=== PATIENT | female | born 1955 | race Caucasian/White ===

== ENCOUNTER → 2017-11-25 10:26 | Outpatient (CLI) | payer MEDICAID, SELFPAY ==
[2017-11-30 15:54] LABS: HPV APTIMA, High Risk Negative (Negative)
== END ==
PROVIDERS: Visit Provider Obstetrics & Gynecology
DX: Z01.419 Encounter for gynecological examination (general) (routine) without abnormal findings (principal)
CPT/HCPCS: 88175; G0145

== ENCOUNTER 2019-12-23 14:21 | Observation (INO) | payer MEDICARE, SELFPAY ==
[2019-12-23] VITALS (7 sets, daily range): BP systolic 117–147; BP diastolic 73–85; PULSE 87–109; RESP 15–20; TEMP 35.8–36.8; O2SAT 94–98; BMI 34.7; BMI 33.8
--- NOTE | 2019-12-23 14:52 | EKG12_ITS ---
Test Reason : SYNCOPE Blood Pressure : / mmHG Vent. Rate : 099 BPM Atrial Rate : 099 BPM P-R Int : 152 ms QRS Dur : 128 ms QT Int : 402 ms P-R-T Axes : 062 083 011 degrees QTc Int : 515 ms Normal sinus rhythm Right bundle branch block Abnormal ECG Confirmed by CHANTAL HURTADO, TANESHA ([id number]), research editor DANIEL RUIZ ([id number]) on 12/25/2019 2:40:00 PM Referred By: DC Confirmed By:TANESHA CORNEJO MD
--- NOTE | 2019-12-23 14:52 | CT_ITS ---
STUDY: CT ABDOMEN AND PELVIS WITH CONTRAST REASON FOR EXAM: Female, 64 years old. Abdominal pain diarrhea RADIATION DOSAGE (If Supplied By Facility): CTDIvol = ( 17.65 ) mGy, DLP = ( 1141.75 ) mGycm TECHNIQUE: CT images were obtained from the dome of the diaphragm to the symphysis pubis without oral contrast. IV 100mL Isovue-370 was administered. Sagittal and coronal images were reconstructed. Individualized dose optimization techniques were used for this CT. COMPARISON: None. FINDINGS: The visualized lung bases are unremarkable. The visualized portions of the heart are within normal limits. Normal liver. Gallbladder is removed. Normal spleen. Normal pancreas. 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 Normal bilateral adrenal glands. Normal right kidney. Normal left kidney. There is no intestinal obstruction. There is colonic diverticulosis without diverticulitis. The appendix is visualized and appears normal. Normal abdominal aorta. Normal inferior vena cava. Normal retroperitoneum. BMI severely elevated Normal urinary bladder. Normal abdominal wall. Normal osseous structures. CT/Abdomen/Pelvis W IV Cont ONLY IMPRESSION: 1. No acute findings 2. 1.5 cm splenic artery aneurysm. Vascular referral is advised. Electronically Signed: Teresa Delgado, at 16:15 EDT Tel , Service support ,
--- NOTE | 2019-12-23 14:53 | CT_ITS ---
STUDY: CT BRAIN WITHOUT CONTRAST REASON FOR EXAM: Female, 64 years old. Syncope. RADIATION DOSAGE (If Supplied By Facility): CTDIvol = ( 5 ) mGy, DLP = ( 812.98 ) mGycm TECHNIQUE: Transaxial CT imaging of the brain was performed without administration of intravenous contrast material. Individualized dose optimization techniques were used for this CT. COMPARISON: No relevant priors. FINDINGS: Normal soft tissue structures. Normal calvarium. Normal size ventricles and extra-axial spaces for the patient''s age. Normal white matter tracts of the cerebral hemispheres. There is a small lacunar infarct in the right basal ganglia. Normal left basal ganglia and bilateral thalami. Normal brainstem. Normal cerebellum. There is no intracranial hemorrhage. There are no findings of an acute ischemic infarction. Normal visualized paranasal sinuses. CT/Brain/Head without Contrast IMPRESSION: Remote lacunar infarct in the right basal ganglia. There is no other evidence of intracranial or calvarial abnormality. Electronically Signed: Carlos Elena DO at 16:44 EDT Tel [phone], Service support ,
[2019-12-23 15:00] LABS: Absolute Lymphocyte Count 1.85 X10^3/uL (0.83-4.51); Absolute Neutrophil Count 6.6 X10^3/uL (2.0-7.7); Basophil# 0.04 X10^3/uL; Basophil% 0.4 % (0-1); Eosinophil# 0.09 X10^3/uL; Hematocrit 48.4 % (37-47); Hemoglobin 15.7 g/dL (12.0-15.0); Lymphocyte # 1.85 X10^3/ul (4.0); Lymphocyte % 19.7 % (19-41); Mean Corp Hgb Conc 32.4 g/dL (32-36); Mean Corpuscular Hgb 27.4 pg (27.0-32.0); Mean Corpuscular Volume 84.3 fL (81-99); Mean Platelet Vol. 11.8 fl (6.2-12.0); Monocyte% 8.5 % (0-10); NRBC Flagged by Analyzer 0 % (0-5); Neutrophil # 6.61 X10^3/uL (2.7-7.7); Neutrophil % 70.2 % (47-70); Platelet Count 282 K/mm3 (150-450); RBC Distribution Width CV 14.6 % (11.6-14.6); RBC Distribution Width SD 44.5 fl (35.1-43.9); Red Blood Count 5.74 M/mm3 (4.2-5.4); White Blood Count 9.4 K/mm3 (4.4-11.0)
[2019-12-23 15:15] LABS: ALB/GLOB Ratio 1.1 RATIO (0.9-2.4); AST(SGOT) 16 U/L (15-37); Alanine Aminotransfer ALT/SGPT 25 U/L (13-56); Alkaline Phosphatase 87 U/L (45-117); Anion Gap 9 (5-15); BUN 16 mg/dL (7-18); BUN/Creat Ratio 17.9 RATIO (10-20); Calcium,Total 8.5 mg/dL (8.5-10.1); Chloride 107 mmol/L (98-107); Creatinine, Serum 0.89 mg/dL (0.55-1.02); EST Glomerular Filtration Rate 67 mL/min (>60); Est Glom Filt Rate - Afr Amer 81 mL/min (>60); Estimated Creatinine Clearance 51.44 ml/min; Globulin 3.5 g/dL (2.2-4.2); Glucose 110 mg/dL (74-106); Lipase 110 U/L (73-393); Potassium 3.7 mmol/L (3.5-5.1); Protein, Total 7.5 g/dL (6.4-8.2); Sodium Level 141 mmol/L (136-145)
[2019-12-23] MEDS: 0.9% Normal Saline 1,000 ML 1000 ML IV (15:24)
--- NOTE | 2019-12-23 16:00 | RAD_ITS ---
STUDY: X-RAY CHEST REASON FOR EXAM: Female, 64 years old. syncope and sob TECHNIQUE: Frontal view of the chest COMPARISON: November 24 2016 FINDINGS: The lungs are clear and expanded. There is no demonstrated pleural abnormality. Normal size heart. Normal mediastinum and kaley. Normal visualized pulmonary arteries. Normal visualized aortic arch and descending thoracic aorta. Normal visualized thoracic spine. Normal visualized ribs, clavicles, and shoulders. There is no demonstrated abnormality of the visualized soft tissue structures of the upper abdomen. RAD/Chest 1 View (Portable) IMPRESSION: Normal x-ray examination of the chest. Electronically Signed: Teresa Delgado, at 16:51 EDT Tel , Service support ,
[2019-12-23 16:19] LABS: Bacteria 0 SEEN /hpf (None Seen); Mucous, Urine 0 SEEN /hpf (<or=2+); Red Blood Cells-Urine 0 SEEN /hpf (0-5)
[2019-12-23 16:26] LABS: Color, Urine Yellow (Yellow); Glucose, Dipstick Normal (Normal); Ketone-Dipstick Negative (Negative); Leukocyte Esterase-Dipstick Negative /ul (Negative); Nitrite-Dipstick Negative (Negative); Occult Blood-Urine Negative /ul (Negative); Protein-Dipstick Negative (Negative); Urine Bilirubin Dipstick Negative (Negative); Urine Clarity Clear (Clear); Urine Urobilinogen Normal (Normal)
[2019-12-23 16:42] LABS: Squamous Epithelial Cells - UA 0-5 SEEN /hpf (5-10)
[2019-12-23 16:44] LABS: White Blood Cells 0-5 SEEN /hpf (0-5)
--- NOTE | 2019-12-23 18:12 | ED.VISSUMM ---
- ER Visit Summary Date of Service: 12/23/19 Chief Complaint: Syncope History of Present Illness: The patient is a 64 F with a history of syncope. This is her third episode of syncope this month. She has had some diarrhea today. It was liquid without blood. After an episode of diarrhea, she passed out while still sitting on the toilet. She did not sustain any injuries. She denies any other associated symptoms. Physical Examination: Afebrile and vital signs unremarkable except for heart rate of 109. Head and neck atraumatic. Heart tachycardic but regular. Lungs clear. Abdomen soft and nontender. Skin appears normal. Test Results: EKG shows sinus rhythm at a rate of 99 with right bundle branch block pattern. Chest x-ray normal. CT brain showed a right basal ganglia remote lacunar infarct. CT abdomen and pelvis showed 1.5 cm splenic artery aneurysm. Hemoglobin 15.7, glucose 110, hepatic panel and lipase normal. Urinalysis normal. Troponin normal. Stool testing was not completed in the ED. Emergency Department Course and Treatment: Patient was placed on a monitor. Work-up as above. Orthostatics were negative, but she did receive IV fluids. No further symptoms or episodes in the ED. Given that this is her third episode in the past 2 weeks, and I do not have an explanation for her syncope, I consulted the hospitalist to admit for further care. Patient was informed about her splenic artery aneurysm and will follow-up with vascular surgery non-emergently. I do not believe this is causing her syncope. Treatment Plan: As above Disposition: Admission Impression: Syncope, splenic artery aneurysm This note was generated with [employer] dictation software. It may contain incorrect words, spelling, and punctuation that were not noted in review of the chart prior to signing ED Disposition - Plan for ED Patient: Referrals: Dewayne Guallpa PA [Primary Care Provider] -
--- NOTE | 2019-12-23 18:15 | HP.PCM_ITS ---
Problem List (1) Syncope and collapse Status: Acute (2) Diarrhea Status: Acute History of Present Illness Date of Admission: 12/23/19 Chief Complaint: Passed out The patient is a 64 year old F in relatively good health with no chronic medical comorbidities who presented to the emergency department after passing out. Patient reports 3-day history of diarrhea. Patient states she was sitting on the toilet when she passed out. Prior to that she had experienced 2 previous syncopal episode not related to bowel movement. Patient presented to the emergency department as a result. Was placed in isolation after enteric p athogens have been collected and admitted to regular nursing floor for subsequent management. Past Medical History Allergies Sulfa (Sulfonamide Antibiotics) Allergy (Verified 12/23/19 14:21) Hives Home Medications: Ambulatory Orders Medication Instructions Recorded No Known/Unobtainable [No Known 11/24/16 Home Medications] Smoking Status: Never smoker - *Family History Maternal History Items: - - Mother is alive at age 99 Paternal History Items: Heart Disease - Review of Systems Constitutional: Denies: Anorexia, Chills, Fever, Night Sweats, Weight Change HEENT: Denies: Head Aches, Sinus Congestion, Sinus Drainage Cardiovascular: Reports: Syncope. Denies: Chest Pain, Orthopnea, Palpitations, Paroxysmal Noc. Dyspnea Respiratory: Denies: Cough, Shortness of breath at rest, Shortness of breath upon exertion, Sputum production Gastrointestinal: Reports: Diarrhea. Denies: Abdominal Pain, Hematemesis, Hematochezia, Nausea, Melena, Vomiting Genitourinary: Denies: Dysuria, Frequency, Hematuria, Urgency Musculoskeletal: Denies: Joint Pain, Joint Tenderness Skin: Denies: Rash Neurological: Denies: Focal weakness, Numbness, Tingling Psychiatric: Denies: Homicidal Ideations, Suicidal Ideations Hematologic/ Lymphatic: Denies: Easy Bruising, Easy Bleeding VTE Information - Inpt Only VTE Present on Admission: No VTE Mechan Device Prophylaxis: None VTE Pharm Prophylaxis ordered?: Yes Patient Problems: Active and Suspected Problems Syncope and collapse (Acute) Diarrhea (Acute) Objective: GENERAL: cooperative HEENT: Atraumatic; EYES; Anicteric, Normal Conjunctiva NECK; supple, normal thyroid, RESPIRATORY: Diminished to auscultation CARDIOVASCULAR: Regular S1 S2, GI: soft, normoactive bowel sounds, : No Renal angle tenderness; EXTREMITIES: No edema, no clubbing, MUSCULOSKELETAL: no muscle waisting NEURO: Awake; no lateralizing signs. SKIN: No Rash PSYCH; Flat affect - Physical Exam Vitals/I&O's: Vital Signs Temp Pulse Resp BP Pulse Ox 98.0 F 95 17 117/76 98 12/23/19 14:23 12/23/19 17:38 12/23/19 17:38 12/23/19 17:38 12/23/19 17:38 Oxygen Delivery Method Room Air Weight: 88.9 kg Body Mass Index (BMI) 34.7 Laboratory Results 12/23/19 14:43: WBC 9.4, RBC 5.74 H, Hgb 15.7 H, Hct 48.4 H, MCV 84.3, MCH 27.4, MCHC 32.4, RDW Std Deviation 44.5 H, RDW Coeff of [place] 14.6, Plt Count 282, MPV 11.8, Immature Gran % (Auto) 0.200, Neut % (Auto) 70.2 H, Lymph % (Auto) 19.7, [place] % (Auto) 8.5, Eos % (Auto) 1.0, Baso % (Auto) 0.4, Absolute Neuts (auto) 6.6, Absolute Lymphs (auto) 1.85, Nucleated RBC % 0 12/23/19 14:43: Sodium 141, Potassium 3.7, Chloride 107, Carbon Dioxide 25.0, Anion Gap 9, BUN 16, Creatinine 0.89, Estim Creat Clear Calc 51.44, Est GFR (MDRD) Af Amer 81, Est GFR (MDRD) Non-Af 67, BUN/Creatinine Ratio 17.9, Glucose 110 H, Calcium 8.5, Total Bilirubin 0.60, AST 16, ALT 25, Alkaline Phosphatase 87, Troponin I < 0.015, Total Protein 7.5, Albumin 4.0, Globulin 3.5, [place] min/Globulin Ratio 1.1, Lipase 110 12/23/19 16:15: Urine Color Yellow, Urine Clarity Clear, Urine pH 6.0, Ur Specific [place] 1.010, Urine Protein Negative, Urine Glucose (UA) Normal, Urine Ketones Negative, Urine Occult Blood Negative, Urine Nitrite Negative, Urine Bilirubin Negative, Urine Urobilinogen Normal, Ur Leukocyte Esterase Negative, Urine RBC 0 SEEN, Urine WBC 0-5 SEEN, Ur Squamous Epith Cells 0-5 SEEN, Urine Bacteria 0 SEEN, Urine Mucus 0 SEEN Assessment/Plan All Active Problems Syncope and collapse (Acute) Diarrhea (Acute) Patient is a 64-year-old lady presented with a syncopal episode 1. Syncopal episode ?Patient presentation consistent with vasovagal; Patient had experienced diarrhea for almost 3 days orthostatic hypotension could also be the etiology of her syncope. Admitted to monitored bed ordered orthostatics every shift, resuscitated with IV fluid. As part of her management ordered serial cardiac enzymes and 2D echo. With this being patient had syncopal episode plan is to pursue a nuclear stress test prior to discharge once her diarrhea resolves 2. Acute gastroenteritis ?Patient placed under enteric precautions whilst stool pathogens collected 3. Elevated blood pressure -patient not a known hypertensive blood pressure was however elevated on admission please on hydralazine as needed 4. Obesity with BMI of 34.7 ?Weight loss advised 5. DVT prophylaxis ?Lovenox Advance planning; did discuss with the patient regarding advanced directives as well as CODE STATUS. Did explain the various scenarios involved ( FULL CODE, DNR CCA, DNR CCA with no intubation, and DNR CC and what each meant) patient elected to full code. Order was placed. Time spent on discussion 18 minutes. OBSV E&M: 83871 Initial observation care L3 Procedures: 39695 Advncd Care Plan 30 Min
--- NOTE | 2019-12-23 18:15 | NURSING ---
PCU SYNCOPE KITTOE
[2019-12-24 01:01] VITALS: BP 145/75; PULSE 96; RESP 12; TEMP 37; O2SAT 93
[2019-12-24 03:01] VITALS: PULSE 89
[2019-12-24 04:47] LABS: Absolute Lymphocyte Count 0.96 X10^3/uL (0.83-4.51); Absolute Neutrophil Count 5.1 X10^3/uL (2.0-7.7); Basophil# 0.03 X10^3/uL; Basophil% 0.4 % (0-1); Eosinophil# 0.14 X10^3/uL; Hematocrit 41.7 % (37-47); Hemoglobin 13.1 g/dL (12.0-15.0); Lymphocyte # 0.96 X10^3/ul (4.0); Lymphocyte % 13.9 % (19-41); Mean Corp Hgb Conc 31.4 g/dL (32-36); Mean Corpuscular Hgb 26.9 pg (27.0-32.0); Mean Corpuscular Volume 85.6 fL (81-99); Mean Platelet Vol. 11.2 fl (6.2-12.0); Monocyte# 0.63 X10^3/uL; Monocyte% 9.1 % (0-10); NRBC Flagged by Analyzer 0 % (0-5); Neutrophil # 5.14 X10^3/uL (2.7-7.7); Neutrophil % 74.5 % (47-70); Platelet Count 225 K/mm3 (150-450); RBC Distribution Width CV 14.6 % (11.6-14.6); Red Blood Count 4.87 M/mm3 (4.2-5.4); White Blood Count 6.9 K/mm3 (4.4-11.0)
[2019-12-24 05:05] LABS: Anion Gap 6 (5-15); BUN 13 mg/dL (7-18); BUN/Creat Ratio 18.6 RATIO (10-20); Calcium,Total 7.5 mg/dL (8.5-10.1); Chloride 113 mmol/L (98-107); EST Glomerular Filtration Rate 89 mL/min (>60); Est Glom Filt Rate - Afr Amer 108 mL/min (>60); Estimated Creatinine Clearance 45.78 ml/min; Glucose 100 mg/dL (74-106); Potassium 4.1 mmol/L (3.5-5.1); Sodium Level 144 mmol/L (136-145)
[2019-12-24 06:00] VITALS: BP 128/71; BP 131/89; BP 133/70; PULSE 84; PULSE 88; PULSE 95; RESP 18; TEMP 36.9; O2SAT 94
[2019-12-24 07:01] VITALS: PULSE 93
[2019-12-24] MEDS: Acetaminophen 325 MG Tablet 650 MG PO (08:22)
[2019-12-24] MEDS: Enoxaparin 40 MG/0.4 ML Syringe SC (08:34)
--- NOTE | 2019-12-24 10:04 | DCINST_ITS ---
- Discharge Diagnoses Current Active Problems: Current Active and Chronic Problems Syncope and collapse (Acute) Diarrhea (Acute) You will use the following diet at home:: Other - Light diet, advance as tolerated Discharge Activity: Return to Normal Activity Call your doctor if you observe: Shortness of breath, Dizziness, Fainting spells, Chest pain Additional Instructions: You will need to have echocardiogram and stress test as outpatient which can be ordered by your primary care provider. Allergies/Adverse Reactions: Allergies Sulfa (Sulfonamide Antibiotics) Allergy (Verified 12/23/19 14:21) Hives Medications to take at Discharge Loperamide [Imodium] 2 mg PO Q2H PRN PRN #60 cap 12/24/19 The following prescriptions were given: Loperamide [Imodium] 2 mg PO Q2H PRN PRN #60 cap PRN Reason: Diarrhea Transmission Status: Pending to [facility] Primary Care Physician: Dewayne Guallpa PA [Primary Care Provider] - Please follow up with your Primary Care Physician in: As scheduled, Tuesday 12/26 Test Results: Test results from this visit will be discussed in further detail at your follow- up appointment, if applicable. Please Follow Up With: Chico Calixto MD - [phone] When: Call to establish for colonoscopy Proposed Discharge Date: 12/24/19
--- NOTE | 2019-12-24 10:18 | DS.PCM_ITS ---
<Natalia Matthew - Last Filed: 12/24/19 10:49> Discharge Date and Diagnosis Date of Admission: 12/23/19 Date of Discharge: 12/24/19 - Primary Discharge Diagnosis Acute Problems: Active Problems 1. Syncope, probable vasovagal complicated by dehydration related to ongoing diarrhea 2. Acute on chronic diarrhea 3. Obesity 4. Incidental finding of splenic artery aneurysm Hospital Course and Treatment Imaging Results: Diagnostic Data Abdomen/Pelvis CT 12/23/19 14:52 IMPRESSION: 1. No acute findings 2. 1.5 cm splenic artery aneurysm. Vascular referral is advised. Electronically Signed: Teresa Delgado, at 16:15 EDT Tel , Service support , Brain CT 12/23/19 14:53 IMPRESSION: Remote lacunar infarct in the right basal ganglia. There is no other evidence of intracranial or calvarial abnormality. Electronically Signed: Carlos Elena DO at 16:44 EDT Tel [phone], Service support , Chest X-Ray 12/23/19 16:00 IMPRESSION: Normal x-ray examination of the chest. Electronically Signed: Teresa Delgado, at 16:51 EDT Tel , Service support , Operations: None Procedures: None Summary of Care Provided: The patient is a 64 year old F admitted 12/23/2019 due to syncopal episode. 1. Syncope, probable vasovagal complicated by dehydration related to ongoing diarrhea-troponin negative. EKG without ST-T changes. No arrhythmias noted on telemetry. Orthostatic vitals negative. Brain CT shows old lacunar infarct in the right basal ganglia. Plan to undergo echo and stress test Wednesday morning however patient strongly voiced wanting to go home and complete these as an outpatient. Discussed with patient warning signs/symptoms and when to return to the emergency room for further evaluation. Patient in agreement to close follow-up with PCP at discharge and arranging outpatient echo/stress by primary care provider. Will discharge on aspirin [address] demonstrating old lacunar infarct. 2. Acute on chronic diarrhea-patient states this is been ongoing for several years. She has never had colonoscopy. Stool negative for C. difficile. Enteric bacteriology negative. PRN Imodium. Refer to general surgery for outpatient colonoscopy. 3. Obesity-encouraged diet and lifestyle modifications. 4. Incidental finding of splenic artery aneurysm-1.5 cm splenic artery aneurysm noted on CT of abdomen and pelvis. Referred to vascular surgery for outpatient monitoring. Patient seen and examined prior to discharge. Physical assessment as noted below. Patient is stable for discharge with follow up recommendations as noted above. This patient was seen by TANA Brandon under the supervision of Dr. Reis. - Physical Exam Vitals/I&O's: Vital Signs Temp Pulse Resp BP Pulse Ox 98.4 F 93 18 133/70 H 94 12/24/19 06:00 12/24/19 07:01 12/24/19 06:00 12/24/19 06:00 12/24/19 06:00 Oxygen Delivery Method Room Air Weight: 191 lb Body Mass Index (BMI) 33.8 Orthostatic Vital Signs Start: 12/24/19 05:36 Freq: q24h Status: Active Protocol: Activity Type Activity Date Activity User E-Sign Co-Sign Detail Recorded Client Recorded Date Recorded By Document 12/24/19 06:00 CM [id number] 12/24/19 06:17 CM 12/24/19 06:00 Orthostatic Vitals Standing -Blood Pressure (90/60-120/80) 128/71 H -Extremity Use Right Arm -Pulse Rate (60-100) 95 Sitting -Blood Pressure (90/60-120/80) 131/89 H -Extremity Use Right Arm -Pulse Rate (60-100) 88 Lying -Blood Pressure (90/60-120/80) 133/70 H -Extremity Use Left Arm -Pulse Rate (60-100) 84 Intake and Output for Last 24 Hours 12/22/19 12/23/19 12/24/19 23:59 23:59 23:59 Intake Total 999 / 999 Balance 999 General: Alert, Oriented x3, Cooperative HEENT: Atraumatic, PERRLA, EOMI, Normocephalic Neck: Supple, No JVD, Negative Carotid Bruits Lungs: Clear to auscultation, Normal air movement Cardiovascular: Regular rate, No murmurs Abdomen: Bowel Sounds Present, Soft, Non Tender Extremities: No edema, Capillary Refill Less than 3 Seconds Skin: No rashes, No breakdown Musculoskeletal: No Tenderness to Palpation of Joints or Extremities Neurological: Cranial nerves II-XII grossly intact, Neuro grossly intact Psych/Mental Status: Normal Affect, Appropriate Microbiology Past 72 Hours 12/23/19 19:15 Stool C. difficile DNA Amplification - Final 12/23/19 20:40 Stool Stool Lactoferrin - Final Laboratory Results 12/23/19 14:43: WBC 9.4, RBC 5.74 H, Hgb 15.7 H, Hct 48.4 H, MCV 84.3, MCH 27.4, MCHC 32.4, RDW Std Deviation 44.5 H, RDW Coeff of [place] 14.6, Plt Count 282, MPV 11.8, Immature Gran % (Auto) 0.200, Neut % (Auto) 70.2 H, Lymph % (Auto) 19.7, [place] % (Auto) 8.5, Eos % (Auto) 1.0, Baso % (Auto) 0.4, Absolute Neuts (auto) 6.6, Absolute Lymphs (auto) 1.85, Nucleated RBC % 0 12/23/19 14:43: Sodium 141, Potassium 3.7, Chloride 107, Carbon Dioxide 25.0, Anion Gap 9, BUN 16, Creatinine 0.89, Estim Creat Clear Calc 51.44, Est GFR (MDRD) Af Amer 81, Est GFR (MDRD) Non-Af 67, BUN/Creatinine Ratio 17.9, Glucose 110 H, Calcium 8.5, Total Bilirubin 0.60, AST 16, ALT 25, Alkaline Phosphatase 87, Troponin I < 0.015, Total Protein 7.5, Albumin 4.0, Globulin 3.5, Albumin/Globulin Ratio 1.1, Lipase 110 12/23/19 16:15: Urine Color Yellow, Urine Clarity Clear, Urine pH 6.0, Ur Specific [place] 1.010, Urine Protein Negative, Urine Glucose (UA) Normal, Urine Ketones Negative, Urine Occult Blood Negative, Urine Nitrite Negative, Urine Bilirubin Negative, Urine Urobilinogen Normal, Ur Leukocyte Esterase Negative, Urine RBC 0 SEEN, Urine WBC 0-5 SEEN, Ur Squamous Epith Cells 0-5 SEEN, Urine Bacteria 0 SEEN, Urine Mucus 0 SEEN 12/23/19 22:42: Troponin I < 0.015 12/24/19 01:32: Troponin I < 0.015 12/24/19 04:42: WBC 6.9, RBC 4.87, Hgb 13.1, Hct 41.7, MCV 85.6, MCH 26.9 L, MCHC 31.4 L, RDW Std Deviation 46.0 H, RDW Coeff of [place] 14.6, Plt Count 225, MPV 11.2, Immature Gran % (Auto) 0.100, Neut % (Auto) 74.5 H, Lymph % (Auto) 13.9 L, [place] % (Auto) 9.1, Eos % (Auto) 2.0, Baso % (Auto) 0.4, Absolute Neuts (auto) 5.1, Absolute Lymphs (auto) 0.96, Nucleated RBC % 0 12/24/19 04:42: Sodium 144, Potassium 4.1, Chloride 113 H, Carbon Dioxide 25.0, Anion Gap 6, BUN 13, Creatinine 0.70, Estim Creat Clear Calc 45.78, Est GFR (MDRD) Af Amer 108, Est GFR (MDRD) Non-Af 89, BUN/Creatinine Ratio 18.6, Glucose 100, Calcium 7.5 L, Troponin I < 0.015 Current Medications Acetaminophen (Tylenol) 650 mg PO Q6H PRN PRN PRN Reason: Pain Score 1-10/Temp > 100.7 F Last Admin: 12/24/19 08:22 Dose: 650 mg Documented by: Albuterol Sulfate (Ventolin Aerosols) 2.5 mg INHALATION Q2H PRN PRN PRN Reason: SOB/Wheezing Enoxaparin Sodium (Lovenox) 40 mg SC DAILY [facility] Last Admin: 12/24/19 08:34 Dose: 40 mg Documented by: Potassium Chloride/Sodium Chloride () 1,000 mls @ 150 mls/hr IV .Q6H40M [facility] Last Admin: 12/24/19 09:25 Dose: 150 mls/hr Documented by: Melatonin (Melatonin) 3 mg PO QHS PRN PRN PRN Reason: INSOMNIA Morphine Sulfate () 4 mg IV Q3H PRN PRN PRN Reason: Pain Score 6-10/10 Nitroglycerin (Nitrostat) 0.4 mg SUBLINGUAL Q5M PRN PRN Reason: CARDIAC/CHEST PAIN Ondansetron HCl (Zofran) 4 mg IV Q8H PRN PRN PRN Reason: NAUSEA/VOMITING Oxycodone HCl (Oxyir) 5 mg PO Q4H PRN PRN PRN Reason: Pain Score 4-5/10 Promethazine HCl (Phenergan) 25 mg IM Q6H PRN PRN PRN Reason: Breakthrough Nausea/Vomiting Sodium Chloride () 10 - 40 ml IV UD PRN PRN Reason: SALINE FLUSH Discharge Diet: Light diet - advance as tolerated Discharge Activity: Return to Normal Activity Call your doctor if you observe: Shortness of breath, Dizziness, Fainting spells, Chest pain Home Medications: Medications to take at Discharge Aspirin E.C. [Ecotrin] 81 mg PO DAILY@0800 #30 tab 12/24/19 Loperamide [Imodium] 2 mg PO Q2H PRN PRN #60 cap 12/24/19 Following Prescriptions Were Given to Patient: Aspirin E.C. [Ecotrin] 81 mg PO DAILY@0800 #30 tab Transmission Status: Received by [facility] Loperamide [Imodium] 2 mg PO Q2H PRN PRN #60 cap PRN Reason: Diarrhea Transmission Status: Received by [facility] Primary Care Physician: Dewayne Guallpa PA [Primary Care Provider] - Please follow up with your Primary Care Physician in: As scheduled, Tuesday 12/26 Please Follow Up With: Chico Calixto MD - [phone] When: Call to establish for colonoscopy Please Follow Up With: Tyrell Dee MD When: Call for follow up for splenic artery aneurysm Disposition: Home Minutes spent on discharge:: 35 Patient Condition:: Stable Medical Necessity - Tobacco Use Smoking Status: Never smoker Meaningful Use Info Meaningful Use Diagnoses (Choose all that apply): None applicable <Jacob Reis - Last Filed: 12/24/19 13:02> Hospital Course and Treatment Summary of Care Provided: This patient was seen in conjunction with TANA Brandon . I have independently interviewed and examined the patient and reviewed pertinent historical, laboratory, and other data. Please refer to TANA Brandon note for details of this patient's presentation, findings, and recommendations. I have reviewed TANA Brandon note and concur with documented findings. In brief, Patient is a 64-year-old lady presented with a syncopal episode 1. Syncopal episode 2. Acute gastroenteritis 3. Elevated blood pressure 4. Obesity with BMI of 34.7 5. DVT prophylaxis Hospital course: As documented above - Physical Exam Vitals/I&O's: Vital Signs Temp Pulse Resp BP Pulse Ox 97.8 F 84 15 122/68 H 95 12/24/19 11:10 12/24/19 11:10 12/24/19 11:10 12/24/19 11:10 12/24/19 11:10 Oxygen Delivery Method Room Air Weight: 86.636 kg Body Mass Index (BMI) 33.8 Orthostatic Vital Signs Start: 12/24/19 05:36 Freq: q24h Status: Active Protocol: Activity Type Activity Date Activity User E-Sign Co-Sign Detail Recorded Client Recorded Date Recorded By Document 12/24/19 06:00 CM [id number] 12/24/19 06:17 CM 12/24/19 06:00 Orthostatic Vitals Standing -Blood Pressure (90/60-120/80) 128/71 H -Extremity Use Right Arm -Pulse Rate (60-100) 95 Sitting -Blood Pressure (90/60-120/80) 131/89 H -Extremity Use Right Arm -Pulse Rate (60-100) 88 Lying -Blood Pressure (90/60-120/80) 133/70 H -Extremity Use Left Arm -Pulse Rate (60-100) 84 Intake and Output for Last 24 Hours 12/22/19 12/23/19 12/24/19 23:59 23:59 23:59 Intake Total 1000 / 1000 2892.5 / 2892.5 Balance 1000 / 1000 2892.5 / 2892.5 Microbiology Past 72 Hours 12/23/19 20:40 Stool Enteric Bacteriology - Final 12/23/19 19:15 Stool C. difficile DNA Amplification - Final 12/23/19 20:40 Stool Stool Lactoferrin - Final Laboratory Results 12/23/19 14:43: WBC 9.4, RBC 5.74 H, Hgb 15.7 H, Hct 48.4 H, MCV 84.3, MCH 27.4, MCHC 32.4, RDW Std Deviation 44.5 H, RDW Coeff of [place] 14.6, Plt Count 282, MPV 11.8, Immature Gran % (Auto) 0.200, Neut % (Auto) 70.2 H, Lymph % (Auto) 19.7, [place] % (Auto) 8.5, Eos % (Auto) 1.0, Baso % (Auto) 0.4, Absolute Neuts (auto) 6.6, Absolute Lymphs (auto) 1.85, Nucleated RBC % 0 12/23/19 14:43: Sodium 141, Potassium 3.7, Chloride 107, Carbon Dioxide 25.0, Anion Gap 9, BUN 16, Creatinine 0.89, Estim Creat Clear Calc 51.44, Est GFR (MDRD) Af Amer 81, Est GFR (MDRD) Non-Af 67, BUN/Creatinine Ratio 17.9, Glucose 110 H, Calcium 8.5, Total Bilirubin 0.60, AST 16, ALT 25, Alkaline Phosphatase 87, Troponin I < 0.015, Total Protein 7.5, Albumin 4.0, Globulin 3.5, Albumin/Globulin Ratio 1.1, Lipase 110 12/23/19 16:15: Urine Color Yellow, Urine Clarity Clear, Urine pH 6.0, Ur Specific [place] 1.010, Urine Protein Negative, Urine Glucose (UA) Normal, Urine Ketones Negative, Urine Occult Blood Negative, Urine Nitrite Negative, Urine Bilirubin Negative, Urine Urobilinogen Normal, Ur Leukocyte Esterase Negative, Urine RBC 0 SEEN, Urine WBC 0-5 SEEN, Ur Squamous Epith Cells 0-5 SEEN, Urine Bacteria 0 SEEN, Urine Mucus 0 SEEN 12/23/19 22:42: Troponin I < 0.015 12/24/19 01:32: Troponin I < 0.015 12/24/19 04:42: WBC 6.9, RBC 4.87, Hgb 13.1, Hct 41.7, MCV 85.6, MCH 26.9 L, MCHC 31.4 L, RDW Std Deviation 46.0 H, RDW Coeff of [place] 14.6, Plt Count 225, MPV 11.2, Immature Gran % (Auto) 0.100, Neut % (Auto) 74.5 H, Lymph % (Auto) 13.9 L, [place] % (Auto) 9.1, Eos % (Auto) 2.0, Baso % (Auto) 0.4, Absolute Neuts (auto) 5.1, Absolute Lymphs (auto) 0.96, Nucleated RBC % 0 12/24/19 04:42: Sodium 144, Potassium 4.1, Chloride 113 H, Carbon Dioxide 25.0, Anion Gap 6, BUN 13, Creatinine 0.70, Estim Creat Clear Calc 45.78, Est GFR (MDRD) Af Amer 108, Est GFR (MDRD) Non-Af 89, BUN/Creatinine Ratio 18.6, Glucose 100, Calcium 7.5 L, Troponin I < 0.015 Current Medications Acetaminophen (Tylenol) 650 mg PO Q6H PRN PRN PRN Reason: Pain Score 1-10/Temp > 100.7 F Last Admin: 12/24/19 08:22 Dose: 650 mg Documented by: Albuterol Sulfate (Ventolin Aerosols) 2.5 mg INHALATION Q2H PRN PRN PRN Reason: SOB/Wheezing Enoxaparin Sodium (Lovenox) 40 mg SC DAILY [facility] Last Admin: 12/24/19 08:34 Dose: 40 mg Documented by: Potassium Chloride/Sodium Chloride () 1,000 mls @ 150 mls/hr IV .Q6H40M [facility] Last Infusion: 12/24/19 11:02 Dose: Infused Documented by: Melatonin (Melatonin) 3 mg PO QHS PRN PRN PRN Reason: INSOMNIA Morphine Sulfate () 4 mg IV Q3H PRN PRN PRN Reason: Pain Score 6-10/10 Nitroglycerin (Nitrostat) 0.4 mg SUBLINGUAL Q5M PRN PRN Reason: CARDIAC/CHEST PAIN Ondansetron HCl (Zofran) 4 mg IV Q8H PRN PRN PRN Reason: NAUSEA/VOMITING Oxycodone HCl (Oxyir) 5 mg PO Q4H PRN PRN PRN Reason: Pain Score 4-5/10 Promethazine HCl (Phenergan) 25 mg IM Q6H PRN PRN PRN Reason: Breakthrough Nausea/Vomiting Sodium Chloride () 10 - 40 ml IV UD PRN PRN Reason: SALINE FLUSH OBSV E&M: 77616 Observation care discharge
--- NOTE | 2019-12-24 10:49 | PCM.DC ---
You will use the following diet at home:: Other - Light diet-advance as tolerated. Discharge Activity: Return to Normal Activity Call your doctor if you observe: Shortness of breath, Dizziness, Fainting spells, Chest pain Additional Instructions: You will need to have echocardiogram and stress test as outpatient which can be ordered by your primary care provider. Allergies/Adverse Reactions: Allergies Sulfa (Sulfonamide Antibiotics) Allergy (Verified 12/23/19 14:21) Hives Medications to take at Discharge Aspirin E.C. [Ecotrin] 81 mg PO DAILY@0800 #30 tab 12/24/19 Loperamide [Imodium] 2 mg PO Q2H PRN PRN #60 cap 12/24/19 The following prescriptions were given: Aspirin E.C. [Ecotrin] 81 mg PO DAILY@0800 #30 tab Transmission Status: Sent to [facility] Loperamide [Imodium] 2 mg PO Q2H PRN PRN #60 cap PRN Reason: Diarrhea Transmission Status: Pending to [facility] Primary Care Physician: Dewayne Guallpa PA [Primary Care Provider] - Please follow up with your Primary Care Physician in: As scheduled, Tuesday 12/26 Test Results: Test results from this visit will be discussed in further detail at your follow-up appointment, if applicable. Please Follow Up With: Chico Calixto MD - [phone] When: Call to establish for colonoscopy Please Follow Up With: Tyrell Dee MD When: Call for follow up for splenic artery aneurysm Proposed Discharge Date: 12/24/19
[2019-12-24] MEDS: Loperamide 2 MG Capsule PO (11:01)
[2019-12-24 11:10] VITALS: BP 122/68; PULSE 84; RESP 15; TEMP 36.6; O2SAT 95
== END 2019-12-24 10:12 | disposition home or self-care (01) ==
LOC: ED 18:13 → PCU 18:40
PROVIDERS: Family Medicine; Admitting Provider Internal Medicine; Emergency Provider Emergency Medicine; PCP Physician Assistant; Visit Provider Internal Medicine
DX: R55 Syncope and collapse (principal); E66.9 Obesity, unspecified; I72.8 Aneurysm of other specified arteries; I45.10 Unspecified right bundle-branch block; Z68.34 Body mass index [BMI] 34.0-34.9, adult; R03.0 Elevated blood-pressure reading, without diagnosis of hypertension; R19.7 Diarrhea, unspecified
CPT/HCPCS: 36415; 70450; 71045; 74177; 80048; 80053; 81001; 83630; 83690; 84484; 85025; 87177; 87209; 87493; 87506; 93005; 96360; 96361; 96372; 99218; 99285; Q9967; G0378

== ENCOUNTER → 2020-07-27 08:50 | Outpatient (CLI) | payer MEDICARE, SELFPAY ==
[2020-07-10 08:39] VITALS: BMI 36.9
[2020-07-17 08:30] VITALS: BMI 36.7
--- NOTE | 2020-07-27 08:52 | CT_ITS ---
CLINICAL HISTORY: pain -- TEMPLATING FOR RIGHT TKA COMPARISON: None TECHNIQUE: Multiple thin section axial CT images of the right lower extremity were obtained through the hip joint, knee joint, and ankle and filmed in bone windows. Furthermore, multiple sagittal and coronal reconstructions were performed. Dose limiting techniques were utilized. Next FINDINGS: No abnormal soft tissue mass, lymphadenopathy, fluid collection. No acute fracture or dislocation. No lytic or blastic lesions. Examination the hip joint is normal without significant arthrosis. Severe of the right knee arthrosis particularly of the medial compartment with severe joint space narrowing osteophyte formation, subchondral sclerosis and subchondral cyst formation with a 12 mm calcified body anteriorly. Examination the ankle is normal without significant arthrosis. CT/Extremity Lower without Contra IMPRESSION: Severe right knee arthrosis. Electronically Signed: Darrin Sanchez MD at 11:01 EDT Tel , Service support ,
== END ==
PROVIDERS: PCP Physician Assistant; Referring Provider Orthopaedic Surgery; Visit Provider Orthopaedic Surgery
DX: M17.11 Unilateral primary osteoarthritis, right knee (principal)
CPT/HCPCS: 73700

== ENCOUNTER 2020-07-30 10:02 | Observation (INO) | payer MEDICARE, SELFPAY ==
[2020-07-10 08:39] VITALS: BMI 36.9
[2020-07-17 08:30] VITALS: BMI 36.7
[2020-07-22 10:44] LABS: Absolute Neutrophil Count 4.2 X10^3/uL (2.0-7.7); Basophil# 0.05 X10^3/uL; Basophil% 0.8 % (0-1); Eosinophil# 0.14 X10^3/uL; Eosinophils% 2.2 % (0-5); Hematocrit 49.1 % (37-47); Hemoglobin 15.4 g/dL (12.0-15.0); Lymphocyte % 23.7 % (19-41); Mean Corp Hgb Conc 31.4 g/dL (32-36); Mean Corpuscular Hgb 27.7 pg (27.0-32.0); Mean Corpuscular Volume 88.5 fL (81-99); Mean Platelet Vol. 12.4 fl (6.2-12.0); Monocyte# 0.39 X10^3/uL; Monocyte% 6.2 % (0-10); NRBC Flagged by Analyzer 0 % (0-5); Neutrophil # 4.23 X10^3/uL (2.7-7.7); Neutrophil % 66.8 % (47-70); Platelet Count 267 K/mm3 (150-450); RBC Distribution Width SD 45.1 fl (35.1-43.9); Red Blood Count 5.55 M/mm3 (4.2-5.4); White Blood Count 6.3 K/mm3 (4.4-11.0)
[2020-07-22 10:54] LABS: Prothrombin Time (Protime)PT. 12.9 SECONDS (11.7-14.9)
[2020-07-22 10:55] LABS: Partial Thromboplast Time 28.2 Seconds (24.1-36.2)
[2020-07-22 10:57] LABS: Magnesium 2.1 mg/dL (1.6-2.6)
[2020-07-22 11:00] LABS: Anion Gap 5 (5-15); BUN 16 mg/dL (7-18); BUN/Creat Ratio 18.4 RATIO (10-20); Calcium,Total 8.4 mg/dL (8.5-10.1); Chloride 109 mmol/L (98-107); Creatinine, Serum 0.87 mg/dL (0.55-1.02); EST Glomerular Filtration Rate 69 mL/min (>60); Est Glom Filt Rate - Afr Amer 84 mL/min (>60); Glucose 114 mg/dL (74-106); Potassium 4.1 mmol/L (3.5-5.1); Sodium Level 141 mmol/L (136-145)
[2020-07-23 08:48] LABS: Fructosamine 200 umol/L (0-285)
[2020-07-30] VITALS (14 sets, daily range): BP systolic 101–144; BP diastolic 43–77; PULSE 82–100; RESP 16–18; TEMP 36.3–37.1; O2SAT 92–100; BMI 36.6
[2020-07-30] MEDS: Gabapentin 600 MG Tablet PO (06:15)
[2020-07-30] MEDS: Acetaminophen 500 MG Tablet 1000 MG PO ×3 (06:15→21:57)
[2020-07-30] MEDS: Lactated Ringers 1,000 ML 100 ML IV ×2 (06:15→08:45)
[2020-07-30] MEDS: Scopolamine 1mg/72hr Patch 1 PATCH TD (06:16)
--- NOTE | 2020-07-30 07:02 | HP.PCM_ITS ---
History and Physical Date of Admission: 07/30/20 Intake Vital Signs 07/10/20 Height 5 ft 2 in 07/10/20 Weight: 202 lb 07/10/20 BMI 36.9 Intake Visit Reasons: Bilat Knees Chief Complaint: BL knees Accompanied by: self Is patient in pain?: Yes Pain scale (1-10): 7 Allergies Sulfa (Sulfonamide Antibiotics) Allergy (Verified 12/23/19 14:21) Hives Medications Aspirin E.C. [Ecotrin] 81 mg PO DAILY@0800 #30 tab 12/24/19 [Rx Confirmed 07/10/20] Loperamide [Imodium] 2 mg PO Q2H PRN PRN #60 cap 12/24/19 [Rx Confirmed 07/10/20] rosuvastatin 5 mg tablet ea PO 07/10/20 [History Confirmed 07/10/20] PFSH Medical History (Updated 07/10/20 @ 08:38 by Amber Peña) History of pacemaker (Acute ~2019) Hx Gallbladder Removal (Acute ~2007) Surgical History (Updated 07/10/20 @ 08:38 by Amber Peña) Hx of bladder repair surgery (Acute ~1997) Social History (Updated 07/10/20 @ 10:[address] Charanjit Wing DO) Smoking Status: Never smoker HPI Bilat Knees: Details: Parts of this documentation were recorded by a scribe, this documentation accurately reflects the service provided and the decisions made by me, Dr. Charanjit Wing DO 07/10/20 2127. DOMONIQUE FINCH is a 65 year old F NEW patient here today for BL knee pain. She states that the right knee is worse than the left. She has had this pain for about 7 years. Denies any injections or surgery. Denies any previous injury to the knees. She has tried OTC knee bracing which is semi effective. Has tried dry needling with PT about 3 years ago for the knees and she does use topical pain creams at home. She states that the right knee is more over the medial knee and the left knee pain is generalized anterior knee pain. Denies any radiating leg pain. Denies numbness, tingling or other associated symptoms. She has taken Aleve in the past but has switched to Tylenol. She has limited ROM of the right knee. She states that the pain is limited her ADLs, she is unable to use steps at this time. She has increased knee pain with stairs or prolonged standing. She states that she has good days and bad days but the pain is worse with activities. She states that the knee pain limits her walking and she feels that she cant travel d/t the pain. ROS Musc Reports joint pain, Reports joint swelling, Reports limited joint movement, Denies numbness, Denies radiating pain into limb, Reports stiffness, Denies tingling Skin/Breast Denies redness, Denies lesions, Denies itching, Denies rash, Denies skin swelling Neuro No numbness, No tingling Ortho Exam General General: Yes no acute distress Neurologic: Yes alert, Yes oriented x3 Psychologic: Yes reasonable and appropriate Right Knee Skin/Wound: No erythema, No ecchymosis, No swelling Homans Sign: No Knee ROM: No ROM-Extension -20 to 0 (lacking 8), No ROM-Flexion 0-140 (80) Examination: Yes Med jt line tenderness, No Lat jt line tenderness, Yes Crepitus Stability: NML: Anterior Drawer, NML: Posterior Drawer, NML: Valgus 30, NML: Varus 30 Patella Grind: Yes KNEE: neurovascularly intact throughout the lower leg pulses intact collateral ligaments intact no joint effusion b/l fixed varus deformity Left Knee Skin/Wound: No ecchymosis, No erythema, No swelling Homans Sign: No Knee ROM: Yes ROM-Extension -20 to 0, No ROM-Flexion 0-140 (100) Examination: Yes Crepitus Stability: NML: Anterior Drawer, NML: Posterior Drawer, NML: Valgus 30, 1+: Varus 30 (fixed varus) Patella Grind: Yes KNEE: no joint effusion collateral intact fixed varus Supplemental Info 07/10/2020 X-ray right knee advanced knee arthrosis with varus deformity [id number] 07/10/2020 x-ray left knee advanced knee arthrosis [id number] medial compartment with varus deformity Assessment & Plan Problems 1. Primary osteoarthritis of knees, bilateral M17.0 Plan Obtained X-rays of patient's BL knees. Personally reviewed x-rays. There is no obvious fracture, dislocation, or lucency noted. Patient educated that she does have OA of her BL knees. 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 It isnt recommended that she has BL TKA at the same time d/t the increased risk. Patient wishes to proceed with right TKA. Patient has had physical therapy in the past With dry needling without much relief as well as with failure of relief with NSAIDsSpecifically Aleve Considering her advanced arthrosis [id number] duration of her symptoms and the effect on her activities of daily living I think is appropriate to go ahead and proceed with total knee arthroplasty, She does have preoperative stiffness and we will send her for preoperative physical therapy and encourage range of motion preoperatively with quad strengthening. She understands risk of postoperative stiffnessAnd importance to have postoperative physical therapy immediately. Reviewed the pre-operative plans with the patient. Risks and benefits of the procedure were fully explained, including but not limited to infection, neurovascular injury, continued pain, stiffness, need for further surgery, re- injury, DVT, PE, general risks of anesthesia, and loss of limb or life. The patient understands all the risks and does wish to proceed with written consent. Risks, benefits and alternatives of surgery reviewed including but not limited to bleeding, infection, nerve, artery and/or tissue damage, fracture, VTE, mechanical feel of the knee, continued pain, stiffness and expected post- operative course. Educated on the IOVERA treatment and she wishes to have this done as long as insurance covers the procedure. She will also need a CT scan prior to surgery for the Walter assist. She will be on a blood thinner for 2 weeks post op and she will use compression stocking for a few weeks after surgery. We will also send her to [facility] at this time for a couple visits prior to surgery. Educated that she will more than likely feel better than prior to surgery about 3 months post op. On average she wont feel comfortable driving for 6 weeks post op. She will need transport from the hospital to do out patient therapy. Follow up for IOVERA tx or 2 weeks post op or sooner if pain, swelling, numbness or associated symptoms, or concerns develop. All questions answered. Patient in agreement of plan. Orders Orders: Knee 4 or More Views Today M25.562 Knee 4 or More Views Today M25.561 Coding Level of Care Code Off vis,new,level 3 Diagnoses Primary osteoarthritis of knees, bilateral M17.0 I have re-examined the patient. There are no clinical changes since date of exam Procedure Criteria Procedure Type: Elective COVID Risk Discussion: The surgeon/proceduralist and patient have discussed in detail the risk of exposure to and/or potential harm posed by the COVID-19 virus with having a surgery/procedure at this time versus the risk of delaying the surgery/procedure. It is not possible to know either the risk of delaying the surgery or procedure or chance of getting an infection with perfect accuracy, but a joint decision was made between the patient and the surgeon/proceduralist to proceed at this time with the scheduled surgery/procedure as indicated on the consent form.
[2020-07-30] MEDS: Cefazolin 2 GM in 0.9% Normal Saline 100 ML IV (07:25)
[2020-07-30 07:40] LABS: Bedside Glucose 107 mg/dL (70-110)
[2020-07-30] MEDS: dexAMETHasone 10 MG/ML Vial IV (07:56)
[2020-07-30] MEDS: Epinephrine (1 mg/ml) 1 MG/ML VIAL (09:38)
[2020-07-30] MEDS: Bupivacaine Mpf 0.5% 30 ML VIAL (09:39)
[2020-07-30] MEDS: Betamethasone/Betamethasone 30 MG/5 ML Vial (09:39)
[2020-07-30] MEDS: 0.9% Normal Saline (Pres. free 10 ML Vial (09:39)
--- NOTE | 2020-07-30 10:04 | RAD_ITS ---
STUDY: X-RAY - RIGHT KNEE REASON FOR EXAM: Female, 65 years old. post op -- AP and Lateral xray of operative knee in PACU TECHNIQUE: 2 view(s) of the knee. COMPARISON: 07/10/2020. FINDINGS: Status post total knee arthroplasty. Surgical hardware intact/well aligned. No acute complications. Postoperative soft tissues with staple line. RAD/Knee 1 or 2 Views IMPRESSION: Uncomplicated right knee arthroplasty Electronically Signed: Cameron Cantu DO at 11:05 EDT Tel , Service support ,
--- NOTE | 2020-07-30 10:07 | OP.PCM_ITS ---
Report of Operation Date of Procedure: 07/30/20 Description of Surgical Findings:: Preoperative diagnosis: Right knee DJD Postoperative diagnosis: Same Procedure: Right total knee arthroplasty CT guided Robotic Assisted Implant: Jatinder triathlon press fit femoral component size2, press-fit tibial baseplate size 3, press fit asymmetric patella size 29, polyethylene X3 size 9 CS Anesthesia: Spinal with adductor canal block Tourniquet time: Minutes at 300 mmHg Complications: None Condition: Stable to PACU Estimated blood loss: 125 cc Indication for procedure: This is a 65-year-old female with long standing degenerative joint disease with severe flexion contracture and varus deformity of the knee who has failed conservative treatment and wished to proceed with elective total knee arthroplasty. Risk benefits and alternatives were reviewed including; risk of bleeding, infection, nerve artery and tissue damage, continued pain, postoperative stiffness, venous thromboembolism, need for postoperative rehabilitation, mechanical feel to the knee, and expected postoperative course. The operative CT and templating was performed with component sizing Procedure: The patient was met in the preoperative holding area. The operative extremity was identified by both patient and physician and was marked. Patient was met by anesthesia. An adductor canal block was placed by anesthesia postoperatively the patient was brought back to the operating room on a wheeled cart and transferred to the operating table in the supine position. Anesthesia was started. A well-padded tourniquet was placed on the operative extremity. The patient was prepped and draped in the usual sterile fashion. A timeout was called to ensure the proper patient procedure and extremity were being contemplated. An Esmarch was used to exsanguinate the extremity. The tourniquet was inflated. A 10 blade scalpel was used to make a midline incision down through the skin and subcutaneous tissue. Skin retractors placed. Bovie was used to perform meticulous hemostasis. full-thickness flaps were elevated medial and lateral along the joint capsule. A deep blade scalpel was used to perform a medial parapatellar arthrotomy. The knee was brought to full extension. A Bovie was used to release the soft tissues off the most proximal aspect of the medial tibial plateau, a three-quarter inch curved osteotome was also used for this process. The infrapatellar fat pad was excised. The superior fat pad was excised partially anteriorolateraly and portion the anterioromedial pad was elevated from the femur. At this point our intra- articular femoral array was placed of a 45 degree angle proximal and posterior to the medial epicondyle. Our tibial array was placed greater than 1 hands breath below the incision at a 20 degree angle stab incisions were used for this case were attached and checked with the robotic software. Tourniquet was let down. At this point registration rios were taken throughout the knee as well as checkpoints placed in the femur and tibia once the knee was registered then tensioned the medial and lateral ligaments in extension and 90 degrees of flexion. We then used these numbers to adjust our components within parameters to balance the knee in both flexion and extension once this was done on our monitor we then proceeded with using the robotic arm to make our tibial plateau cut and anterior posterior and chamfer cuts and distal on the femur we then trialed and achieved the desired plan with a well-balanced knee. Lug holes were drilled in the femur the tibia preparation was completed with a fin punch and the patella was prepared by first using a caliper to ensure sufficient bone stock and a patellar reamer to remove the desired amount of bone locals were drilled for an asymmetric poly-. We then brought the knee through range of motion with excellent patellar tracking. We thoroughly irrigated the knee with a trial components were removed a posterior capsular injection with her standard cocktail was performed the aqua Mantis was also used to aid in hemostasis. Betadine rinse was allowed to sit and washed out components were press-fit into place. Aricept rinse was then used followed by several more rate liters of irrigation after it was allowed to sit. Joint capsule was closed with #1 Ethibond [id number]'s followed by Vicryl in the subcutaneous tissues staple in the skin arrays and checkpoints were removed prior to closure all counts were correct stab incisions were closed with a stable standard dressing in the form of Mepilex for the main incision Xeroform 4 x 4 and Tegaderm over pin site holes. Thigh-high TOM hose applied over top of dressing. Patient tolerated the procedure well and was directed to PACU in stable condition no intraoperative complications
[2020-07-30] MEDS: Cefazolin 1 GM/50 ML BAG IV ×2 (11:09→19:09)
[2020-07-30] MEDS: Lactated Ringers 1,000 ML 125 ML IV (11:11)
[2020-07-30] MEDS: oxyCODONE 5 MG Tablet PO ×2 (16:23→21:58)
[2020-07-30] MEDS: 0.9% NaCl Peripheral Flush Adult/Peds IV (19:51)
[2020-07-30] MEDS: Senna/Docusate Sodium 1 Tablet 2 TABLET PO (21:57)
[2020-07-30] MEDS: Metoprolol(XL)Succ 25 MG Tablet PO (21:58)
[2020-07-31] MEDS: Cefazolin 1 GM/50 ML BAG IV (03:36)
[2020-07-31] MEDS: 0.9% NaCl Peripheral Flush Adult/Peds IV (03:37)
[2020-07-31 03:38] VITALS: BP 107/60; PULSE 80; RESP 16; TEMP 36.6; O2SAT 95
[2020-07-31] MEDS: oxyCODONE 5 MG Tablet PO ×3 (03:40→12:24)
[2020-07-31] MEDS: Acetaminophen 500 MG Tablet 1000 MG PO ×2 (05:58→13:45)
[2020-07-31] MEDS: APIXABAN 2.5 MG TABLET PO (06:01)
--- NOTE | 2020-07-31 08:03 | PCM.PN.ORT ---
Subjective: And examined doing well pain controlled denies nausea vomiting shortness of breath chest pain fever or chills - Physical Exam Vitals/I&O's: Vital Signs Temp Pulse Resp BP Pulse Ox 97.8 F 80 16 107/60 95 07/31/20 03:38 07/31/20 03:38 07/31/20 03:38 07/31/20 03:38 07/31/20 03:38 Oxygen Flow Rate (L/min) 6 Oxygen Delivery Method Room Air Weight: 200 lb 6.403 oz Body Mass Index (BMI) 36.6 Intake and Output for Last 24 Hours 07/29/20 07/30/20 07/31/20 23:59 23:59 23:59 Intake Total 4775.50 / 4775.50 600 / 600 Output Total 650 / 650 Balance 4125.50 / 4125.50 600 / 600 General: Alert, Oriented x3, Cooperative, No apparent distress Extremities: - - Dressing clean dry and intact compartments soft neurovascular intact Microbiology Past 72 Hours 07/29/20 09:35 Interface Orders SARS-CoV-2 Antigen (Rapid) - Final Current Medications Acetaminophen (Acetaminophen 500 Mg Tablet) 1,000 mg PO Q8 [facility] Last Admin: 07/31/20 05:58 Dose: 1,000 mg Documented by: Apixaban (Apixaban 2.5 Mg Tablet) 2.5 mg PO 0700,1900 [facility] Last Admin: 07/31/20 06:01 Dose: 2.5 mg Documented by: Hydromorphone HCl (Hydromorphone 0.5 Mg/0.5 Ml Syringe) 0.5 mg IV Q2H PRN PRN PRN Reason: Pain Score 6-10 Sodium Chloride () 250 mls @ 15 mls/hr IV .[id number] PRN PRN Reason: Additional IVPB Infusion Ketorolac Tromethamine (Ketorolac 15 Mg/Ml Vial) 15 mg IV Q6H PRN PRN PRN Reason: Pain Score 1-5 Stop: 08/01/20 10:04 Loperamide HCl (Loperamide 2 Mg Capsule) 2 mg PO Q2H PRN PRN PRN Reason: Diarrhea Metoprolol Succinate (Metoprolol(Xl)Succ 25 Mg Tablet) 25 mg PO QHS [facility] Last Admin: 07/30/20 21:58 Dose: 25 mg Documented by: Ondansetron HCl (Ondansetron 4 Mg/2 Ml Vial) 4 mg IV Q6H PRN PRN PRN Reason: NAUSEA Oxycodone HCl (Oxycodone 5 Mg Tablet) 5 - 10 mg PO Q4H PRN PRN PRN Reason: Pain Score 4-10 Last Admin: 07/31/20 03:40 Dose: 5 mg Documented by: Senna/Docusate Sodium (Senna/Docusate Sodium 1 Tablet) 2 tablet PO BID MANDY Last Admin: 07/30/20 21:57 Dose: 2 tablet Documented by: Sodium Chloride (0.9% Nacl Peripheral Flush Adult/Peds) 5 - 15 ml IV UD PRN PRN Reason: SALINE FLUSH Last Admin: 07/31/20 03:37 Dose: 10 ml Documented by: Sodium Chloride (0.9% Saline Lock 10 Ml Syringe) 10 - 40 ml IV UD PRN PRN Reason: SALINE FLUSH Medical Necessity - Tobacco Use Smoking Status: Never smoker Tobacco Use: Non-smoker Assessment/Plan All Active Problems (Last Updated 07/17/20 @ 08:59 by Geovanna Patel PA, PA) Syncope and collapse (Acute) Diarrhea (Acute) Postop day #1 right total knee arthroplasty Doing well pain controlled PT OT weightbearing as tolerated encourage knee range of motion Discharge home start outpatient PT follow-up in office 2 weeks TOM loya and Eliquis 2.5 mg twice daily for 2 weeks post hospital discharge Rx for oxycodone Tylenol Eliquis sent to [facility] pharmacy
[2020-07-31 08:04] VITALS: BP 108/52; PULSE 67; RESP 16; TEMP 36.4; O2SAT 96
--- NOTE | 2020-07-31 08:05 | DCINST_ITS ---
Discharge Diet: No Restrictions, - Weight Bearing Status: Weight bearing as tolerated Keep extremity elevated above heart level: Operative Extremity Call your doctor if you observe: Shortness of breath, Chest pain Additional Instructions: Ice and elevate one week while not ambulating. Ambulation is encouraged. Weightbearing as tolerated. Use assistive devise for stability. Encourage FULL knee extension and flexion 1 time EVERY time you get up and down and MULTIPLE times per day. No showering 72 hours after surgery. Begin showering postop day #3. Remove the dressing prior to shower and gently wash with warm water and antibacterial soap then pat dry and place abdominal pad (or plain gauze) and TOM hose over top. This is to be done daily. Do not submerge for 3 weeks. If not showering daily after the initial 72 hours then you must clean incision and change dressing daily. Do not allow animals near the incision area. Keep clean. Follow anticoagulation recommendations as prescribed. Do not take any NSAIDs while on blood thinner. Do not take any additional narcotic pain medication other than what was prescribed on you surgery day without discussing with physician. Start physical therapy. If you are not currently scheduled for physical therapy or you are unsure of appointment time please call office [facility] to arrange. Call Dr. Wing with any concerns. Allergies/Adverse Reactions: Allergies Sulfa (Sulfonamide Antibiotics) Allergy (Verified 07/30/20 05:38) Hives Medications to take at Discharge Aspirin E.C. [Ecotrin] 81 mg PO DAILY@0800 #30 tab 12/24/19 Loperamide [Imodium] 2 mg PO Q2H PRN PRN #60 cap 12/24/19 rosuvastatin 5 mg tablet 5 mg PO QHS 07/10/20 mecobalamin (vitamin B12) 5,000 mcg disintegrating tablet 500 mcg PO DAILY tab 07/17/20 multivitamin 1 tab PO DAILY 07/17/20 Metoprolol Succinate [Toprol Xl] 25 mg PO QHS 07/19/20 Primary Care Physician: Dewayne Guallpa PA [Primary Care Provider] - Test Results: Test results from this visit will be discussed in further detail at your follow- up appointment, if applicable. Please Follow Up With: Charanjit Wing DO - 2 weeks
--- NOTE | 2020-07-31 08:10 | DCINST_ITS ---
Discharge Diet: No Restrictions, - Weight Bearing Status: Weight bearing as tolerated Keep extremity elevated above heart level: Operative Extremity Call your doctor if you observe: Shortness of breath, Chest pain Additional Instructions: Ice and elevate one week while not ambulating. Ambulation is encouraged. Weightbearing as tolerated. Use assistive devise for stability. Encourage FULL knee extension and flexion 1 time EVERY time you get up and down and MULTIPLE times per day. No showering 72 hours after surgery. Begin showering postop day #3. Remove the dressing prior to shower and gently wash with warm water and antibacterial soap then pat dry and place abdominal pad (or plain gauze) and TOM hose over top. This is to be done daily. Do not submerge for 3 weeks. If not showering daily after the initial 72 hours then you must clean incision and change dressing daily. Do not allow animals near the incision area. Keep clean. Follow anticoagulation recommendations as prescribed. Do not take any NSAIDs while on blood thinner. Do not take any additional narcotic pain medication other than what was prescribed on you surgery day without discussing with physician. Start physical therapy. If you are not currently scheduled for physical therapy or you are unsure of appointment time please call office [facility] to arrange. Call Dr. Wing with any concerns. Allergies/Adverse Reactions: Allergies Sulfa (Sulfonamide Antibiotics) Allergy (Verified 07/30/20 05:38) Hives Medications to take at Discharge Aspirin E.C. [Ecotrin] 81 mg PO DAILY@0800 #30 tab 12/24/19 Loperamide [Imodium] 2 mg PO Q2H PRN PRN #60 cap 12/24/19 rosuvastatin 5 mg tablet 5 mg PO QHS 07/10/20 mecobalamin (vitamin B12) 5,000 mcg disintegrating tablet 500 mcg PO DAILY tab 07/17/20 multivitamin 1 tab PO DAILY 07/17/20 Metoprolol Succinate [Toprol Xl] 25 mg PO QHS 07/19/20 Acetaminophen [Tylenol] 1,000 mg PO Q8 #100 tablet 07/31/20 Apixaban [Eliquis] 2.5 mg PO 0700,1900 #28 tablet 07/31/20 Oxycodone [Oxyir] 5 - 10 mg PO Q4H PRN PRN #60 tablet 07/31/20 The following prescriptions were given: Apixaban [Eliquis] 2.5 mg PO 0700,1900 #28 tablet Transmission Status: Pending to [facility] Oxycodone [Oxyir] 5 - 10 mg PO Q4H PRN PRN #60 tablet PRN Reason: Pain Score 4-10 Transmission Status: Sent to [facility] Acetaminophen [Tylenol] 1,000 mg PO Q8 #100 tablet Transmission Status: Pending to [facility] Primary Care Physician: Dewayne Guallpa PA [Primary Care Provider] - Test Results: Test results from this visit will be discussed in further detail at your follow- up appointment, if applicable. Please Follow Up With: Charanjit Wing DO - 2 weeks
--- NOTE | 2020-07-31 09:45 | CASEMGMT ---
KEVIN QUINN Assessment: Face to Face with pt for initial transition planning/care coordination assessment. RN KAI introduced self and role at [facility], pt voices understanding and consents to assessment. Pt is A/O x4 and answers all questions appropriately at this time. Care providers, pharmacy, and demographics verified/updated. Admitting Dx: R TKR PCP: KILO Banuelos Specialists: , ortho; , cardio Preferred Pharmacy: [facility], pt states she would like to use [facility] while she is here. Insurance: [employer] [facility] Prescription Benefit: yes LW/HPOA: Pt reports she has her LW and DPOA at home, but has not fully completed. Denies need for further AD info. LNOK: Soto Toth, brother Living Arrangements: Pt lives alone in a single story house with 1 step to enter without a grab bar or rail. She states she needs to have a grab bar installed. Pt reports being I in ADL's. Denies any concerns at home. Transportation: Pt normally drives self but has family who can drive. Denies issues with transportation. DME/HHC/SNF: Pt reports having a walker, high rise toilet seat and grab bar in shower. She states she is asking family for a shower chair. Pt denies further need for DME. She denies having any previous HHC or SNF stays. Pt has an appt tomorrow at [facility] for therapy evaluation. Pt states no concerns with going home at time of dc. Pt states no further concerns/needs. CM to follow. Advised pt to ask CM if any further question/concerns/needs arise, voices understanding. Explanation provided to pt for Eliquis card. CM called [facility] to notify as well. Pt to have meds delivered to room. Pt Goal: Home Plan: Home with family support, follow up plans in place.
[2020-07-31] MEDS: Senna/Docusate Sodium 1 Tablet 2 TABLET PO (09:52)
--- NOTE | 2020-07-31 10:26 | PHA.DC.MC ---
Pharmacy Service has performed discharge medication reconciliation and counseling for this patient. 1. ACETAMINOPHEN 1000MG PO Q8H 2. APIXABAN 2.5MG PO BID 3. OXYCODONE 5-10MG PO Q4H PRN PAIN 4-10 The patient's discharge medication list was reviewed for discrepancies and discrepancies were resolved. Home Medications Aspirin E.C. [Ecotrin] 81 mg PO DAILY@0800 #30 tab 12/24/19 Loperamide [Imodium] 2 mg PO Q2H PRN PRN #60 cap 12/24/19 rosuvastatin 5 mg tablet 5 mg PO QHS 07/10/20 mecobalamin (vitamin B12) 5,000 mcg disintegrating tablet 500 mcg PO DAILY tab 07/17/20 multivitamin 1 tab PO DAILY 07/17/20 Metoprolol Succinate [Toprol Xl] 25 mg PO QHS 07/19/20 Acetaminophen [Tylenol] 1,000 mg PO Q8 #100 tablet 07/31/20 Apixaban [Eliquis] 2.5 mg PO 0700,1900 #28 tablet 07/31/20 Oxycodone [Oxyir] 5 - 10 mg PO Q4H PRN PRN #60 tablet 07/31/20 The patient was counseled on the following discharge medications and changes in medications for homegoing were reviewed. The Reason for Use, instructions for use, and potential side effects were reviewed for all new medications. The patient's questions regarding all of their medications were answered. The patient was able to verbally demonstrate an understanding of their discharge medications.
[2020-07-31 13:39] VITALS: BP 113/52; PULSE 81; RESP 18; TEMP 36.8; O2SAT 93
== END 2020-07-31 13:58 | disposition home or self-care (01) ==
LOC: MS3 10:35
PROVIDERS: Anesthesiology; Admitting Provider Orthopaedic Surgery; PCP Physician Assistant; Referring Provider Orthopaedic Surgery; Visit Provider Orthopaedic Surgery
PROC: 0SRC0JZ Replacement of Right Knee Joint with Synthetic Substitute, Open Approach (ICD-10-PCS; CPT 27447; principal; 2020-07-30 07:00)
DX: M17.0 Bilateral primary osteoarthritis of knee (principal); I45.10 Unspecified right bundle-branch block; E78.00 Pure hypercholesterolemia, unspecified; Z86.2 Personal history of diseases of the blood and blood-forming organs and certain disorders involving the immune mechanism; Z20.828 Contact with and (suspected) exposure to other viral communicable diseases; Z79.82 Long term (current) use of aspirin; Z79.899 Other long term (current) drug therapy; Z95.0 Presence of cardiac pacemaker
CPT/HCPCS: 01402; 27447; 64447; S2900; 36415; 73560; 80048; 82962; 82985; 83735; 85025; 85610; 85730; 86850; 86900; 86901; 87081; 87426; 96361; 96365; 96366; 97110; 97116; 97162; 97166; 97530; 97535; 97802; 99218; 99251; C1776; C9803; J7120; A4216; G0378; G0379; G0463; J0702; J3490

== ENCOUNTER 2020-10-01 05:55 | Day surgery (SDC) | payer MEDICARE, SELFPAY ==
[2020-09-25 10:22] VITALS: BMI 36.9
[2020-10-01 06:17] VITALS: BP 133/76; PULSE 80; RESP 18; TEMP 36.9; O2SAT 99; BMI 36.6
[2020-10-01] MEDS: Lactated Ringers 1,000 ML 100 ML IV (06:50)
--- NOTE | 2020-10-01 07:13 | PCM.HP.BLA ---
History and Physical Date of Admission: 10/01/20 Date of Service:? 09/25/20 MR#: [id number] Acct: [id number] Name:DOMONIQUE DILL Rep #: [id number] : 1955 ? ? Provider: ?KILO Cho Age/Sex:? 65/F ? ? Location: [facility] Status: Signed Intake Vital Signs ? 08/26/2110:04 09/25/2109:22 BMI 36.9 36.9 Intake Visit Reasons:?Right knee Chief Complaint: BL knees Allergies Sulfa (Sulfonamide Antibiotics) Allergy (Verified 08/14/20 08:53) Hives PFSH Medical History?(Updated 09/25/20 @ 13:11 by KILO Cerrato) Complete heart block History of pacemaker (~2019) Hx Gallbladder Removal (~2007) Hyperlipidemia Right bundle branch block Surgical History?(Updated 09/25/20 @ 10:17 by Amber Peña) Hx of bladder repair surgery (~1997) Social History?(Updated 08/14/20 @ 09:[address] Charanjit Wing, DO) Smoking Status:? Never smoker HPI Right knee Details: Parts of this documentation were recorded by a scribe, this documentation accurately reflects the service provided and the decisions made by me, KILO Horn 09/25/20 1008. DOMONIQUE FINCH is a 65 year old F here today for? 8 week post op right TKA. She states that she isnt happy with her stiffness and some limited ROM she did have limited ROM prior to surgery as well. She is around 110 with flexion and is lacking a couple degrees from full extension. She still has some mild swelling. Has some lateral sided knee pain has well has anterior medial knee pain at times. ROS Musc Reports arthralgias, Reports joint swelling, Reports limited range of motion, Reports numbness, Denies radiating pain into limb, Reports stiffness and Reports tingling Skin/Breast Denies erythema, Denies lesions, Denies pruritus, Denies rash and Denies skin swelling Neuro Yes numbness and Yes tingling Ortho Exam Right Knee Knee ROM: No ROM-Extension -20 to 0 (-16), No ROM-Flexion 0-140 (100), No ROM-Passive Extension -10 to 0 and No ROM-Passive Flexion 0-140 Examination: Yes Med jt line tenderness, No Lat jt line tenderness, Yes Pain with flexion and No TTP Patellar tendon KNEE: Inspection of the right knee shows no acute abnormalities.? Her incision shows great approximation with minimal scarring and no signs of acute inflammation or infection.? She is some minor tenderness in the anteromedial aspect of the knee the same time not specific to the actual joint line itself.? No lateral joint line tenderness.? She does have decreased active range of motion today.? She is approximately 15 to 16 degrees of extension lag (left also has approximately 80 degrees extension lag) and she has approximately 100 degrees of flexion on the right compared to 120 degrees on the left.? She has no calf tenderness, soft compartments, negative Homans. Coding Level of Care Code Global Post Op Diagnoses History of total right knee replacement? Z96.651 Arthrofibrosis of total knee arthroplasty? T84.82XA Assessment and Plan Assessment and Plan (1) History of total right knee replacement: ?Status:?Acute (2) Arthrofibrosis of total knee arthroplasty: ?Status:?Acute ?Plan - KILO Cerrato: Patient presents to the office today for 6-week (is actually 8 weeks) up follow-up for right total knee arthroplasty.? At this time patient is doing okay.? 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 She states that she feels that is what made her stiffen up to where she is now.? Again her incision is healed well with no signs of inflammation or infection.? She has no signs of DVT.? She does lack both extension and flexion today at the same time she was very tight/decreased preoperatively as well.? At this time I did consult with surgeon who evaluated the patient in regards to her decreased range of motion.? We did have a discussion that at this point a manipulation under anesthesia would be warranted to help gain her range of motion.? We did discuss that we usually can get back flexion however extension can vary and sometimes have minimal gains.? We discussed that we do not want to wait longer than next week since she is already 8 weeks.? Risks as well as benefits of manipulation under anesthesia were discussed with patient all her questions were answered.? Consent was signed in office today.? Patient has not been taking pain medications since she is driving during the day.? 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 She is to continue to ice and work on range of motion strengthening.? She needs to plan on doing therapy 1 to 2 days after the manipulation in order to keep range of motion gains during LATHA.? All her questions were answered to her satisfaction at this time.? Patient be contacted by our office to set up the surgery date. This note was generated with [employer] dictation software. It may contain incorrect words, spelling, and punctuation that were not noted in checking the note before signing. I have re-examined the patient. There are no clinical changes since date of exam
[2020-10-01] MEDS: Cefazolin 2 GM in 0.9% Normal Saline 100 ML IV (07:18)
--- NOTE | 2020-10-01 07:22 | PCM.DC ---
Discharge Instructions Dressing / Incision Additional Dressing/Incision Instructions:: Encourage full knee flexion and extension regularly. Start physical therapy immediately. May shower and return to activities as normal. Keep pain controlled with medications as discussed with Dr. Wing in order to keep full range of motion. Ice and elevate next 72 hours. Follow-up with Dr. Wing and call with any questions or concerns. Follow Up Care Please Follow Up With: Charanjit Wing DO When: 4 weeks Test Results: Test results from this visit will be discussed in further detail at your follow-up appointment, if applicable. Discharge Plan Admission Primary Reason for Your Visit: right knee LATHA Attending Provider: Charanjit Wing Primary Care Provider: Dewayne Guallpa Discharge Orders/Prescriptions Prescriptions: New oxycodone 5 mg capsule 5 mg PO Q4H PRN (Reason: pain) 5 Days Qty: 50 RF: 0 No Action rosuvastatin 5 mg tablet 5 mg PO QHS RF: 0 multivitamin [Daily Multi-Vitamin] Tablet 1 tab PO DAILY RF: 0 mecobalamin (vitamin B12) 5,000 mcg tablet,disintegrating 500 mcg PO DAILY RF: 0 loperamide 2 MG capsule 2 mg PO Q2H PRN PRN (Reason: Diarrhea) Qty: 60 RF: 0 aspirin 81 MG tablet 81 mg PO DAILY@0800 Qty: 30 RF: 0 metoprolol succinate 25 MG tablet extended release 24 hr 25 mg PO QHS RF: 0 acetaminophen 500 MG tablet 1,000 mg PO Q8 Qty: 100 RF: 1 oxycodone 5 mg tablet 5 mg PO Q4H PRN PRN (Reason: Pain Score 4-10) Qty: 50 RF: 0 Referrals / Follow Up: Dewayne Guallpa PA [Primary Care Provider] -
[2020-10-01] MEDS: Bupivacaine 0.25%-Epi/Pf 1:200,000 10 ML (07:25)
[2020-10-01] MEDS: MethylPREDNISolone Acetate 40 MG/ML Vial IM (07:25)
--- NOTE | 2020-10-01 07:29 | PCM.OPRPT ---
Report of Operation Description of Surgical Findings:: Preoperative diagnosis: Arthrofibrosis left knee Postoperative diagnosis: Same Procedure: Manipulation under anesthesia with intra-articular steroid injection Anesthesia: General EBL: None Complications: None Condition: Able to PACU Indication for procedure: This is a 65-year-old female who underwent total knee arthroplasty approximately 6 weeks ago who is failed to gain her range of motion wish to undergo an elective manipulation under anesthesia to increase range of motion. risk benefits and alternatives were reviewed including risk of bleeding infection nerve, artery, bone, tissue damage, blood clot need for further surgery and continued pain. Procedure: Patient was met in the preoperative holding area once again the operative extremity was identified by both patient and physician and was marked. Patient was brought back to the operating room anesthesia was started. A timeout was called into the proper patient procedure and extremity were being contemplated. The pre-operative range of motion was lacking 8 degrees of extension and achieving 95 degrees flexion. After patient was adequately anesthetized extension manipulation was performed followed by patellar mobilization followed by gradual flexion scar tissue was palpated being released with no concerning signs for tendon rupture or fracture. Postoperative range of motion was much improved with near full extension and 125 degrees of flexion. Following the manipulation using sterile technique from the superior lateral position an intra-articular injection with 40 mg of depomedrol and 8 cc 0.25%marcaine with epi was injected. bandaid applied
[2020-10-01 07:35] VITALS: BP 120/62; BP 133/76; PULSE 78; RESP 16; TEMP 36.2; O2SAT 95
[2020-10-01 07:40] VITALS: BP 125/70; BP 133/76; PULSE 76; RESP 16; O2SAT 96
[2020-10-01 07:45] VITALS: BP 133/76; BP 135/73; PULSE 76; RESP 16; O2SAT 97
[2020-10-01 07:50] VITALS: BP 133/69; BP 133/76; PULSE 74; RESP 16; TEMP 36.2; O2SAT 96
[2020-10-01 08:20] VITALS: BP 133/76
== END 2020-10-01 08:52 ==
LOC: SDC 05:55 → AC 05:56
PROVIDERS: PCP Physician Assistant; Referring Provider Orthopaedic Surgery; Visit Provider Orthopaedic Surgery
PROC: (CPT 27570; principal; 2020-10-01 07:25)
DX: M24.662 Ankylosis, left knee (principal); Z95.0 Presence of cardiac pacemaker; E78.5 Hyperlipidemia, unspecified; Z79.82 Long term (current) use of aspirin; Z79.899 Other long term (current) drug therapy
CPT/HCPCS: 01380; 20610; 27570; J7120

== ENCOUNTER 2020-10-18 15:00 | Outpatient (RCR) | payer MEDICARE, SELFPAY ==
[2020-07-10 08:39] VITALS: BMI 36.9
[2020-07-30 12:00] VITALS: BMI 36.6
--- NOTE | 2020-08-05 07:10 | HP.PTEVAL_ITS ---
Patient's Visit Information DOMONIQUE FINCH is a 65 year old F referred to Physical Therapy by Dr. Charanjit Wing DO with a diagnosis of R TKA. Date of Evaluation: 08/01/20 Physical Therapist: Ruiz Latham DPT - Visit Plan Frequency: 2-3x /Week Duration: 6 Weeks Plan: Start with ROM, stress extension and flexion end ranges. Progress HEP working on theses. Work on gait progression, edema/pain control. Progress functional mobility and strength at tolerated. - Subjective Pt. is here today for her initial evaluation with diagnosis of R TKA. DOS: 07/30/20. Pt. arrives today with reports of increased pain as she has been home for 1 day. Pt. reports overall doing okay, but has noticed increased pain in knee since being home. Pt. denies chest pain, no calf pain, no fever and no chills. Pt. has been doing her exercises that were given to her at the hospital. Pt. arrives with FWW today. She did report having a lack of ROM pre surgery and having increased pain which led her to have surgery. She lives by her self, but her siblings are helping out. Pt. is hopeful to get back to all recreational activities without limitations. - Pain R knee Pain Intensity (Out of 10): 6 Pain Intensity Range: 2, 9 - Objective POSTURE: Pt. has fwrd flexed posture in stance with L lateral wt shifting. Pt. uses FWW to maintain stability. PALPATION: Pt. has tenderness throughout RLE, negative homans signs. Increased swelling throughout. Bandage in place, but no signs of drainage or infection. Girth: 3 inch increase from R to L at mid patell a. NEURO: Normal sensation in BLEs and normal DTR of achilles B. ROM: R knee 0-10-78deg. Pt. is missing 10deg of extension. Pain noted at end ranges. L knee 0-0-128deg. MMT: RLE- ankle 5/5 throughout; knee- ext 3-/5, flexion 3+/5; hip- flexion 3-/5, abd 3-/5, ext 3/5. GAIT: Pt. ambulates with FWW with has flexed posture and heavy use of AD during R stance phase. Pt. does lack TKE during stance phase and lacks knee flexion during swing phase. Pt. did have improvement with VCing. STAIRS: step to pattern loading LLE only. Use of BHR. TUsec with FWW. WOMAC: 69/96 - Goals Goal 1:: LTG: Pt. to be I with HEP. Goal Time Frame: 4-6 Weeks Goal 2:: STG: Pt. to have full knee extension actively. Goal Time Frame: 2 Weeks Goal 3:: LTG: Pt. to have R knee ROM to 0-0-120deg. actively without increase in symptoms. Goal Time Frame: 4-6 Weeks Goal 4:: LTG: Pt. to ambulate with normal gait pattern without increase in symptoms for unlimited distances. Goal Time Frame: 4-6 Weeks Goal 5:: LTG: Pt. to negotiate steps with reciprocal pattern with use of 1 HR. Goal Time Frame: 4-6 Weeks Goal 6:: STG: pt. to sleep with 0-2/10 pain in R knee allowing for increased quality of life. Goal Time Frame: 2-4 Weeks - Rehabilitation Potential Physical Therapy Diagnosis: Pt. has signs and symptoms consistent with R TKA. Pt. has subsequent hypombility, weakness, difficulty with gait and increased pain. Pt. would benefit from PT to work on the above limitations progressing back to all recreational acitivities without limitations. Rehabilitation Potential: Excellent - Anticipated Interventions Patient/Client Instruction: Educate patient on: Condition, Plan of Care, Benefits of Fitness Program For the Purpose of:: To facilitate caregiver knowledge, To improve self management, To prevent re-injury, To improve ability to perform tasks related to life management, To improve tolerance to ADL's Therapeutic Exercise to Include: Strength training, Power training, Endurance training, Balance training, Coordination, Agility training, Body mechanics, Postural training, Flexibilty training, Gait and locomotor training, Passive ROM, Active ROM For the Purpose of:: To decrease pain, To increase ROM, To improve nutrient delivery to tissue, To increase oxygenation perfusion, To improve muscle performance and motor function, To improve ability to perform ADL's, To increase tolerance to activity/condition/position, To improve gait and locomotor functions, To decrease soft tissue restriction, To increase flexibility/ROM, To improve endurance, To improve balance, To improve safety with gait Manual Therapy Techniques to Include: Mobilization, Passive ROM, Soft tissue mobilization For the Purpose of:: To decrease pain, To decrease swelling/inflammation, To increase ROM, To improve nutrient delivery to tissue, To increase oxygenation perfusion, To improve muscle performance and motor function Cryotherapy (ice pack, ice massage): Yes Vasopneumatic device: Yes For the Purpose of:: To decrease pain, To decrease swelling/inflammation, To increase ROM, To improve nutrient delivery to tissue, To increase oxygenation perfusion, To improve muscle performance and motor function Thank you for the opportunity to evaluate your patient. For Medicare and Medicare HMO plans, please review the plan of care and approve it. It will need to be FAXED BACK to us at [phone] for Medicare purposes. For Medicare only, by signing this I certify the plan of care. Please let me know if there are questions or concerns regarding this plan of care. Physician S ignature: Date:
--- NOTE | 2020-08-13 07:21 | HP.PTREVAL_ITS ---
Dr. Charanjit Wing, DO, It has been my pleasure to treat DOMONIQUE IFNCH over the last 4 visits for R TKA. Please see the progress note below for an update on the physical therapy plan of care! Subjective: Pt. arrives today and reports having pain medication filled by physician. She is having a better tolerance of her R knee pain. Her incision continues to look good, no signs of infection. Objective/Function: Pt. had improved toelrance today with therapy. ROM: 0-5- 98deg with PROM after stretching. AROM 0-8-93deg. Pt. again urged to working into tissue resistance with stretching at home and contniue to ice/elevate for pain. I have tried some light estim to aid with pain control with stretching. Pt. contiunes to be pain dominant with her ROM. Her gait is actually progressing better and has even tried her cane a bit. I talked to her about the focus right now needs to be on progressing end ranges of motion and getting her pain under control. She reports understanding. Pt. to follow up with physician later this week. Plan Plan: Start with ROM, stress extension and flexion end ranges. Progress HEP working on theses. Work on gait progression, edema/pain control. Progress functional mobility and strength at tolerated. Cont. to work further into tissue resistance with ROM of her R knee. Goals Goal 1:: LTG: Pt. to be I with HEP. Goal Time Frame: 4-6 Weeks Goal 2:: STG: Pt. to have full knee extension actively. Goal Time Frame: 2 Weeks Goal 3:: LTG: Pt. to have R knee ROM to 0-0-120deg. actively without increase in symptoms. Goal Time Frame: 4-6 Weeks Goal 4:: LTG: Pt. to ambulate with normal gait pattern without increase in symptoms for unlimited distances. Goal Time Frame: 4-6 Weeks Goal 5:: LTG: Pt. to negotiate steps with reciprocal pattern with use of 1 HR. Goal Time Frame: 4-6 Weeks Goal 6:: STG: pt. to sleep with 0-2/10 pain in R knee allowing for increased quality of life. Goal Time Frame: 2-4 Weeks Anticipated Interventions Patient/Client Instruction: Educate patient on: Condition, Plan of Care, Benefits of Fitness Program For the Purpose of:: To facilitate caregiver knowledge, To improve self management, To prevent re-injury, To improve ability to perform tasks related to life management, To improve tolerance to ADL's Therapeutic Exercise to Include: Strength training, Power training, Endurance training, Balance training, Coordination, Agility training, Body mechanics, Postural training, Flexibilty training, Gait and locomotor training, Passive ROM, Active ROM For the Purpose of:: To decrease pain, To increase ROM, To improve nutrient delivery to tissue, To increase oxygenation perfusion, To improve muscle perfo rmance and motor function, To improve ability to perform ADL's, To increase tolerance to activity/condition/position, To improve gait and locomotor functions, To decrease soft tissue restriction, To increase flexibility/ROM, To improve endurance, To improve balance, To improve safety with gait Manual Therapy Techniques to Include: Mobilization, Passive ROM, Soft tissue mob ilization For the Purpose of:: To decrease pain, To decrease swelling/inflammation, To increase ROM, To improve nutrient delivery to tissue, To increase oxygenation perfusion, To improve muscle performance and motor function Cryotherapy (ice pack, ice massage): Yes Vasopneumatic device: Yes For the Purpose of:: To decrease pain, To decrease swelling/inflammation, To increase ROM, To improve nutrient delivery to tissue, To increase oxygenation perfusion, To improve muscle performance and motor function Please do not hesitate to contact me at [phone] by phone or if you have questions or concerns regarding this new plan of care! Sincerely, Ruiz Latham DPT
--- NOTE | 2020-08-26 10:02 | HP.PTREVAL ---
Dr. Charanjit Wing, DO, It has been my pleasure to treat DOMONIQUE FINCH over the last 9 visits for R TKA. Please see the progress note below for an update on the physical therapy plan of care! Subjective: Pt. arrives today without use of AD. Pt. reports also starting to wean abit from her pain medications. She also reports being able to do some work outside. Pt. reprots 2/10 pain currently in her R knee. Objective/Function: ROM: active: 0-2-110deg. PROM 0-0-115deg. Measure in supine after stretching. Pt. is also tight in her quad as seen in [place] stretching. MMT 4+/5 throughout L knee musculature. TU.3 sec without AD. STAIRS: reciprocal pattern with 2 HR. Marked soreness with loaded RLE during descending. She has made good gains with ROM since seeing physciian last. She continues to be tight into flexion, but has made marked progress. Pt. is able to achieve TKE after stretching as well. She is walking well, but at times, especially with initail steps, where she lacks TKE. We have focused on ROM, stressing both end range flexion and extension. She is working hard at home as well. Plan Plan: Pt. to follow up with physician this week. Then continued PT again stressing end range of motion and fucntional progressions. Goals Goal 1:: LTG: Pt. to be I with HEP. Goal Time Frame: 4-6 Weeks Goal Progress: Progressing Goal 2:: STG: Pt. to have full knee extension actively. Goal Time Frame: 2 Weeks Goal Progress: Goal Met Goal 3:: LTG: Pt. to have R knee ROM to 0-0-120deg. actively without increase in symptoms. Goal Time Frame: 4-6 Weeks Goal Progress: Progressing Goal 4:: LTG: Pt. to ambulate with normal gait pattern without increase in symptoms for unlimited distances. Goal Time Frame: 4-6 Weeks Goal Progress: Progressing Goal 5:: LTG: Pt. to negotiate steps with reciprocal pattern with use of 1 HR. Goal Time Frame: 4-6 Weeks Goal Progress: Progressing Goal 6:: STG: pt. to sleep with 0-2/10 pain in R knee allowing for increased quality of life. Goal Time Frame: 2-4 Weeks Goal Progress: Progressing Anticipated Interventions Patient/Client Instruction: Educate patient on: Condition, Plan of Care, Benefits of Fitness Program For the Purpose of:: To facilitate caregiver knowledge, To improve self management, To prevent re-injury, To improve ability to perform tasks related to life management, To improve tolerance to ADL's Therapeutic Exercise to Include: Strength training, Power training, Endurance training, Balance training, Coordination, Agility training, Body mechanics, Postural training, Flexibilty training, Gait and locomotor training, Passive ROM, Active ROM For the Purpose of:: To decrease pain, To increase ROM, To improve nutrient delivery to tissue, To increase oxygenation perfusion, To improve muscle performance and motor function, To improve ability to perform ADL's, To increase tolerance to activity/condition/position, To improve gait and locomotor functions, To decrease soft tissue restriction, To increase flexibility/ROM, To improve endurance, To improve balance, To improve safety with gait Manual Therapy Techniques to Include: Mobilization, Passive ROM, Soft tissue mobilization For the Purpose of:: To decrease pain, To decrease swelling/inflammation, To increase ROM, To improve nutrient delivery to tissue, To increase oxygenation perfusion, To improve muscle performance and motor function Cryotherapy (ice pack, ice massage): Yes Vasopneumatic device: Yes For the Purpose of:: To decrease pain, To decrease swelling/inflammation, To increase ROM, To improve nutrient delivery to tissue, To increase oxygenation perfusion, To improve muscle performance and motor function Please do not hesitate to contact me at [phone] by phone or if you have questions or concerns regarding this new plan of care! Sincerely, Ruiz Latham DPT
--- NOTE | 2020-10-02 14:17 | HP.PTREVAL_ITS ---
Dr. Charanjit Wing, DO, It has been my pleasure to treat DOMONIQUE FINCH over the last 16 visits for R TKA. Please see the progress note below for an update on the physical therapy plan of care! Subjective: Pt. reports she had tried doing her exercises at home, but when she saw physician he desired her to have greater ROM. She did have a LATHA yesterday. Per operative notes she was able to achieve near full extension and 125deg of flexion during her LATHA. She reports minimal pain currently. Objective/Function: ROM: PROM with PT pressure: lacking 3 deg of full knee extension, flexion increased to 115deg. I urged her to be consistent with stretching x5 per day. Pt. consents. I want her working on step stretching, strap flexion stretching, prone lying and long sitting over pressure at home. Pt. consents. Pt. is walking well, but does lack TKE during stance phase. Pt. able to improve with VCing. Her ROm progressed with stretching this date. Plan Plan: The pt. would like to see how the next couple of weeks go without PT and will follow up with PT if needed. Pt. will continue to work on flexion and extension ROM at home and will be independent with her HEP. Goals Goal 1:: LTG: Pt. to be I with HEP. Goal Time Frame: 4-6 Weeks Goal Progress: Progressing Goal 2:: STG: Pt. to have full knee extension actively. Goal Time Frame: 2 Weeks Goal Progress: Progressing Goal 3:: LTG: Pt. to have R knee ROM to 0-0-120deg. actively without increase in symptoms. Goal Time Frame: 4-6 Weeks Goal Progress: Progressing Goal 4:: LTG: Pt. to ambulate with normal gait pattern without increase in symptoms for unlimited distances. Goal Time Frame: 4-6 Weeks Goal Progress: Progressing Goal 5:: LTG: Pt. to negotiate steps with reciprocal pattern with use of 1 HR. Goal Time Frame: 4-6 Weeks Goal Progress: Progressing Goal 6:: STG: pt. to sleep with 0-2/10 pain in R knee allowing for increased quality of life. Goal Time Frame: 2-4 Weeks Goal Progress: Progressing Anticipated Interventions Patient/Client Instruction: Educate patient on: Condition, Plan of Care, Benefits of Fitness Program For the Purpose of:: To facilitate caregiver knowledge, To improve self m anagement, To prevent re-injury, To improve ability to perform tasks related to life management, To improve tolerance to ADL's Therapeutic Exercise to Include: Strength training, Power training, Endurance training, Balance training, Coordination, Agility training, Body mechanics, Postural training, Flexibilty training, Gait and locomotor training, Passive ROM, Active ROM For the Purpose of:: To decrease pain, To increase ROM, To improve nutrient delivery to tissue, To increase oxygenation perfusion, To improve muscle performance and motor function, To improve ability to perform ADL's, To increase tolerance to activity/condition/position, To improve gait and locomotor functions, To decrease soft tissue restriction, To increase flexibility/ROM, To improve endurance, To improve balance, To improve safety with gait Manual Therapy Techniques to Include: Mobilization, Passive ROM, Soft tissue mobilization For the Purpose of:: To decrease pain, To decrease swelling/inflammation, To increase ROM, To improve nutrient delivery to tissue, To increase oxygenation perfusion, To improve muscle performance and motor function Cryotherapy (ice pack, ice massage): Yes Vasopneumatic device: Yes For the Purpose of:: To decrease pain, To decrease swelling/inflammation, To increase ROM, To improve nutrient delivery to tissue, To increase oxygenation perfusion, To improve muscle performance and motor function Please do not hesitate to contact me at [phone] by phone or if you have questions or concerns regarding this new plan of care! Sincerely, Ruiz Latham DPT
--- NOTE | 2020-11-06 08:43 | HP.PTDCSUM ---
It has been my pleasure to treat DOMONIQUE FINCH referred by Dr. Charanjit Wing DO, with the diagnosis of R TKA for a total of 21 visit(s). Discharge Date: 10/18/20 Please see the following information for a summary of their discharge status. Subjective: Pt. reports I am doing pretty good, no major issues.' She reports having a difficult time with her mother passing away, but other alonzo is doing well. She reports overall much improved. Pt. R knee Pain Intensity (Out of 10): 1 % Improvement: 90 Objective/Function: ROM: 0-0-118deg. AROM, PROM 0-0-120deg. Pt. reports tightness at end of flexion, minimal issues with extension. Pt. has overall 5/5 strength throughout. I talked to her about continuing to stretch into both flexion and extension to maintain current motion. Pt. reports understanding. She is walking well and is having no issues with stair negotiation. Pt. desires to be DC from PT at this point in time. Goal 1:: LTG: Pt. to be I with HEP. Goal Progress: Goal Met Goal 2:: STG: Pt. to have full knee extension actively. Goal Progress: Goal Met Goal 3:: LTG: Pt. to have R knee ROM to 0-0-120deg. actively without increase in symptoms. Goal Progress: Goal Met Goal 4:: LTG: Pt. to ambulate with normal gait pattern without increase in symptoms for unlimited distances. Goal Progress: Goal Met Goal 5:: LTG: Pt. to negotiate steps with reciprocal pattern with use of 1 HR. Goal Progress: Goal Met Goal 6:: STG: pt. to sleep with 0-2/10 pain in R knee allowing for increased quality of life. Goal Progress: Goal Met Plan: DC to HEP at this point in time. She needs to continue to work on ROM, PT. reports understanding. Discharge Comments: Pt. to be DC from PT at this point in time. She needs to continue to work on her ROM to maintain current motion. Pt. consents. She has good functional mobility and is back to working without issues. If there are questions or concerns regarding this patient's physical therapy, please feel free to call me at [phone]. Thank you for the referral of this patient. Sincerely, DUSTIN CandelariaT
== END 2020-10-18 19:00 | disposition home or self-care (01) ==
LOC: PT 15:00
PROVIDERS: PCP Physician Assistant; Visit Provider Orthopaedic Surgery
DX: Z96.651 Presence of right artificial knee joint (principal)
CPT/HCPCS: 97016; 97110; 97161; 97164

== ENCOUNTER 2020-12-27 17:23 | Emergency (ER) | payer MEDICARE, SELFPAY ==
[2020-12-27 17:23] VITALS: BP 135/79; PULSE 105; RESP 18; TEMP 36.3; O2SAT 97; BMI 32.8
[2020-12-27 17:36] VITALS: O2SAT 97
--- NOTE | 2020-12-27 18:56 | RAD_ITS ---
STUDY: X-RAY - RIGHT KNEE REASON FOR EXAM: Female, 65 years old. Injury/Pain TECHNIQUE: 4 view(s) of the knee. COMPARISON: None. FINDINGS: Knee prosthesis is noted in anatomic alignment and position.. No evidence for acute fracture or dislocation. No lytic or sclerotic bony lesions are observed RAD/Knee 4 or More Views IMPRESSION: Stable appearance to right knee prosthesis. No evidence for acute fracture Electronically Signed: Alexander Taylor MD at 20:01 EDT , Service support ,
--- NOTE | 2020-12-27 18:56 | RAD_ITS ---
STUDY: X-RAY CHEST REASON FOR EXAM: Female, 65 years old. Trauma TECHNIQUE: AP portable COMPARISON: None. FINDINGS: Less than optimal inspiratory effort is seen however the lungs are clear.. There is no demonstrated pleural abnormality. Pacer noted on the left with electrodes in satisfactory position. Normal size heart. Normal mediastinum and kaley. Normal visualized pulmonary arteries. Normal visualized aortic arch and descending thoracic aorta. Dorsal spine demonstrates degenerative change. Normal visualized ribs, clavicles, and shoulders. There is no demonstrated abnormality of the visualized soft tissue structures of the upper abdomen. RAD/Chest 1 View (Portable) IMPRESSION: Diminished inspiratory effort. No acute disease Electronically Signed: Alexander Taylor MD at 20:09 EDT , Service support ,
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
== END 2020-12-27 20:28 | disposition home or self-care (01) ==
PROVIDERS: Emergency Provider Emergency Medicine; PCP Physician Assistant
DX: R07.89 Other chest pain (principal); S80.01XA Contusion of right knee, initial encounter; E78.5 Hyperlipidemia, unspecified; V43.52XA Car driver injured in collision with other type car in traffic accident, initial encounter; Y92.410 Unspecified street and highway as the place of occurrence of the external cause; Z96.651 Presence of right artificial knee joint; Z95.0 Presence of cardiac pacemaker; Z79.82 Long term (current) use of aspirin; Z79.899 Other long term (current) drug therapy
CPT/HCPCS: 71045; 73564; 99282

== ENCOUNTER 2021-10-25 10:10 | Observation (INO) | payer MEDICARE, SELFPAY ==
[2021-10-25] VITALS (8 sets, daily range): BP systolic 107–164; BP diastolic 56–95; PULSE 65–105; RESP 13–18; TEMP 36.3–37.1; O2SAT 92–99; BMI 39.5; BMI 37.1
--- NOTE | 2021-10-25 10:47 | RAD_ITS ---
STUDY: X-RAY CHEST REASON FOR EXAM: Female, 66 years old. Dizziness TECHNIQUE: Single AP portable view of the chest. COMPARISON: 12/27/2020. FINDINGS: Dual-chamber left-sided cardiac pacer device in stable position. No focal infiltrate is seen. There is no demonstrated pleural abnormality. Normal size heart. Normal mediastinum and kaley. Normal visualized pulmonary arteries. Normal visualized aortic arch and descending thoracic aorta. Stable soft tissues and osseous structures. There is no demonstrated abnormality of the visualized soft tissue structures of the upper abdomen. RAD/Chest 1 View (Portable) IMPRESSION: No active pulmonary disease. Electronically Signed: Matt Rothman MD at 11:52 EDT ,
--- NOTE | 2021-10-25 10:47 | CT_ITS ---
STUDY: CT BRAIN WITHOUT CONTRAST REASON FOR EXAM: Female, 66 years old. Dizziness RADIATION DOSAGE (If Supplied By Facility): CTDIvol = ( 44.99 ) mGy, DLP = ( 762.36 ) mGycm TECHNIQUE: Transaxial CT imaging of the brain was performed without administration of intravenous contrast material. Individualized dose optimization techniques were used for this CT. COMPARISON: No relevant priors. FINDINGS: Normal soft tissue structures. Normal calvarium. There is mild cerebral atrophy with widening of the extra-axial spaces and ventricular dilatation. There are areas of decreased attenuation within the white matter tracts of the supratentorial brain, consistent with microvascular disease changes. Small hypodense lesion/old infarct in the left periventricular region. Normal brainstem. Normal cerebellum. There is no intracranial hemorrhage. There are no findings of an acute ischemic infarction. Normal visualized paranasal sinuses. CT/Brain/Head without Contrast IMPRESSION: 1. 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 2. No acute intracranial process. 3. If symptoms persist, MRI of the brain is recommended. Electronically Signed: Matt Rothman MD at 11:51 EDT ,
[2021-10-25] MEDS: 0.9% Normal Saline 1,000 ML 1000 ML IV (10:59)
[2021-10-25] MEDS: Meclizine HCl 25 MG Tablet PO (10:59)
[2021-10-25 11:03] LABS: Absolute Lymphocyte Count 2.63 X10^3/uL (0.83-4.51); Absolute Neutrophil Count 4.3 X10^3/uL (2.0-7.7); Basophil# 0.05 X10^3/uL; Basophil% 0.6 % (0-1); Eosinophil# 0.23 X10^3/uL; Eosinophils% 2.9 % (0-5); Hematocrit 48.8 % (37-47); Hemoglobin 15.6 g/dL (12.0-15.0); Lymphocyte # 2.63 X10^3/ul (0.83-4.51); Lymphocyte % 32.9 % (19-41); Mean Corpuscular Hgb 27.8 pg (27.0-32.0); Mean Platelet Vol. 12.1 fl (6.2-12.0); Monocyte# 0.72 X10^3/uL; NRBC Flagged by Analyzer 0 % (0-5); Neutrophil # 4.34 X10^3/uL (2.7-7.7); Neutrophil % 54.3 % (47-70); Platelet Count 269 K/mm3 (150-450); RBC Distribution Width CV 13.4 % (11.6-14.6); RBC Distribution Width SD 42.4 fl (35.1-43.9); Red Blood Count 5.61 M/mm3 (4.2-5.4)
[2021-10-25 11:30] LABS: ALB/GLOB Ratio 1.2 RATIO (0.9-2.4); AST(SGOT) 22 U/L (15-37); Alanine Aminotransfer ALT/SGPT 30 U/L (13-56); Albumin, Serum 3.9 g/dL (3.2-5.0); Alkaline Phosphatase 82 U/L (45-117); Anion Gap 7 (5-15); BUN 20 mg/dL (7-18); BUN/Creat Ratio 24.6 RATIO (10-20); Calcium,Total 8.3 mg/dL (8.5-10.1); Chloride 109 mmol/L (98-107); Creatinine, Serum 0.81 mg/dL (0.55-1.02); EST Glomerular Filtration Rate 74 mL/min (>60); Est Glom Filt Rate - Afr Amer 90 mL/min (>60); Estimated Creatinine Clearance 52.57 ml/min; Globulin 3.3 g/dL (2.2-4.2); Glucose 109 mg/dL (74-106); Potassium 3.8 mmol/L (3.5-5.1); Protein, Total 7.2 g/dL (6.4-8.2); Sodium Level 142 mmol/L (136-145); Troponin-I HS (w/2H Reflex) 6 pg/mL (3.0-54.0)
[2021-10-25 11:47] LABS: Bacteria 0 SEEN /hpf (None Seen); Mucous, Urine 0 SEEN /hpf (<or=2+); Red Blood Cells-Urine 0 SEEN /hpf (0-5); Squamous Epithelial Cells - UA 0 SEEN /hpf (5-10); White Blood Cells 0 SEEN /hpf (0-5)
[2021-10-25] MEDS: Ondansetron 4 MG/2 ML Vial IV (11:51)
[2021-10-25 12:03] LABS: Color, Urine Yellow (Yellow); Glucose, Dipstick Normal (Normal); Ketone-Dipstick 15 mg/dl (Negative); Leukocyte Esterase-Dipstick Negative /ul (Negative); Nitrite-Dipstick Negative (Negative); Occult Blood-Urine Negative /ul (Negative); Protein-Dipstick Negative (Negative); Specific Gravity, Urine 1.015 (1.002-1.030); Urine Bilirubin Dipstick Negative (Negative); Urine Clarity Clear (Clear); Urine Urobilinogen Normal (Normal); Urine pH 6.5 (5.0 - 8.0)
[2021-10-25 12:55] LABS: Reflex Troponin-HS? (from REC) Y
[2021-10-25 13:18] LABS: Troponin-I HS 5 pg/mL (3.0-54.0)
--- NOTE | 2021-10-25 16:10 | HP.PCM.HOS_ITS ---
HPI - General General Date of Admission: 10/25/21 Date of Service: 10/25/21 Chief Complaint: dizziness HPI Narrative DOMONIQUE FINCH, is a 66 F with a PMH as outlined who presents via the ED with a complaint of dizziness and lightheadedness. She denied any headache, chest pain, palpitations, nausea or vomiting. She also felt like her pacemaker was discharging. She hadnt had such symptoms before. She says she had been doing a lot of heavy work recently, and had not been drinking as much as she should. She says she had a pacemaker placed 2 years ago and says she was told then that she had afib also. She is on metoprolol but has never been on any blood thinner, and doesnt know why. She doesnt have any history of GI bleed to preclude her from being anticoagulated. Review of systems was otherwise negative. VItals in the ED wre temp of 97.3F, WA of 77, BP of 133/70 and RR of 16. She was saturating at 99% on room air. CBC showed Hb of 15.6, wbc of 8 and platelets of 269. Chemistry showed sodium of 142 with potassium of 3.8 and Cr of 0.81. Urinalysis was unremarkable. CT brain was negative for any acute intracranial pathology. Her pacemaker was interrogated in the ED and she was found to have a short beat run of afib. She is therefore being admitted to be managed for dizziness and probable afib. [facility] Medical History Afib Arthritis Cardiology follow-up encounter (~07/17/20) Complete heart block History of pacemaker (~2019) Hx Gallbladder Removal (~2007) Hx of cardiovascular stress test (~01/09/20) Hx of echocardiogram (~01/09/20) Hyperlipidemia Leg cramps Pacemaker Right bundle branch block Shortness of breath on exertion TIA (transient ischemic attack) Wears glasses Home Medications aspirin 81 mg tablet,delayed release 81 mg PO DAILY@0800 ##30 12/24/19 [Rx Last Taken 10/24/21 08:00] rosuvastatin 5 mg tablet 5 mg PO QHS 07/10/20 [History Last Taken 10/24/21 22:00] mecobalamin (vitamin B12) 5,000 mcg disintegrating tablet 500 mcg PO DAILY 07/17/20 [History Last Taken 10/24/21 08:00] multivitamin (Daily Multi-Vitamin) 1 tab PO DAILY 07/17/20 [History Last Taken 10/17/21 08:00] metoprolol succinate 25 mg tablet,extended release 24 hr 25 mg PO QHS 07/19/20 [History Last Taken 10/24/21 22:00] Allergy/AdvReac Type Severity Reaction Status Date / Time Sulfa (Sulfonamide Allergy Hives Verified 12/27/20 17:25 Antibiotics) Surgical History History of total knee replacement (TKR) (~07/30/20) Hx of bladder repair surgery (~1997) Hx of cardiac cath (~01/10/20) Social History (Updated 10/25/21 @ 17:40 by Stephany Tobar) housing: house current occupational status: employed Smoking Status: Never smoker ROS Constitutional Constitutional: Reports fatigue and malaise; Denies anorexia, chills, fever(s) or weakness Eyes Eyes: Denies change in vision ENT HEENT: Denies dysphagia Cardiovascular Cardiovascular: Reports lightheadedness; Denies chest pain, dyspnea on exertion, edema, orthopnea, palpitations, paroxysmal nocturnal dyspnea, rapid heart rate or syncope Respiratory/Chest Respiratory/Chest: Denies cough, dyspnea, productive cough, shortness of breath at rest or shortness of breath with exertion Gastrointestinal Gastrointestinal: Denies abdominal pain, constipation, diarrhea, nausea or vomiting Genitourinary Genitourinary: Denies burning urination or dysuria Musculoskeletal Musculoskeletal: Denies arthralgias Neurologic Neurologic: Denies confusion, focal weakness, headache(s) or seizure-like activity Psychiatric Psychiatric: Denies anxiety or depression Hematologic/Lymphatic Hematologic/Lymphatic: Denies anemia Vital Signs Vital Signs Vital Signs: 10/25/21 10:11 10/25/21 10:38 10/25/21 12:16 Temperature 97.3 F L Temperature Source Temporal Pulse Rate 77 Pulse Rate [Lying] 65 Pulse Rate [Sitting (for 1 minute prior to obtaining)] 66 Pulse Rate [Standing (for 1 minute prior to obtaining)] 82 Respiratory Rate 16 Respiratory Effort Non-Labored Short of Breath Respiratory Pattern Normal Blood Pressure 149/80 H Blood Pressure [Lying] 133/70 H Blood Pressure [Sitting (for 1 minute prior to obtaining)] 148/80 H Blood Pressure [Standing (for 1 minute prior to obtaining)] 164/95 H Blood Pressure Mean 103 Blood Pressure Mean [Lying] 91 Blood Pressure Mean [Sitting (for 1 minute prior to obtaining)] 102 Blood Pressure Mean [Standing (for 1 minute prior to obtaining)] 118 Pulse Ox 99 Oxygen Delivery Method Room Air Weight Weight: 216 lb 0.848 oz Body Mass Index (BMI) 39.5 Physical Exam Const alert, oriented x3 and no apparent distress General Appearance: cooperative HEENT normocephalic, head/scalp atraumatic, hearing grossly normal bilaterally and moist oral mucous membranes Mouth: oral and palatal mucosa normal Eyes PERRL and EOMs intact bilaterally Neck no lymphadenopathy Resp normal respiratory effort, no retractions, no use of accessory muscles and clear to auscultation bilaterally Cardio regular rate, regular rhythm, S1 normal heart sound, S2 normal heart sound and no murmurs GI normal to inspection, nondistended, normoactive bowel sounds, soft to palpation, non-tender and non-distended Neuro oriented x3, CN's II-XII intact bilaterally and moves all extremities Sensorium / Orientation: awake Psych affect normal Results Lab / Micro Data Result Diagrams: 10/25/21 10:37 10/25/21 10:37 Labs: Laboratory Results - last 24 hr 10/25/21 10:37: WBC 8.0, RBC 5.61 H, Hgb 15.6 H, Hct 48.8 H, MCV 87.0, MCH 27.8, MCHC 32.0, RDW Std Deviation 42.4, RDW Coeff of [place] 13.4, Plt Count 269, MPV 12.1 H, Immature Gran % (Auto) 0.300, Neut % (Auto) 54.3, Lymph % (Auto) 32.9, [place] % (Auto) 9.0, Eos % (Auto) 2.9, Baso % (Auto) 0.6, Absolute Neuts (auto) 4.3, Absolute Lymphs (auto) 2.63, Nucleated RBC % 0 10/25/21 10:37: Sodium 142, Potassium 3.8, Chloride 109 H, Carbon Dioxide 26.0, Anion Gap 7, BUN 20 H, Creatinine 0.81, Estim Creat Clear Calc 52.57, Est GFR (MDRD) Af Amer 90, Est GFR (MDRD) Non-Af 74, BUN/Creatinine Ratio 24.6 H, Glucose 109 H, Calcium 8.3 L, Total Bilirubin 0.50, AST 22, ALT 30, Alkaline Phosphatase 82, Troponin I High Sens 6, Total Protein 7.2, Albumin 3.9, Globulin 3.3, Albumin/Globulin Ratio 1.2 10/25/21 11:45: Urine Color Yellow, Urine Clarity Clear, Urine pH 6.5, Ur Specific [place] 1.015, Urine Protein Negative, Urine Glucose (UA) Normal, Urine Ketones 15 H, Urine Occult Blood Negative, Urine Nitrite Negative, Urine Bilirubin Negative, Urine Urobilinogen Normal, Ur Leukocyte Esterase Negative, Urine RBC 0 SEEN, Urine WBC 0 SEEN, Ur Squamous Epith Cells 0 SEEN, Urine Bacteria 0 SEEN, Urine Mucus 0 SEEN 10/25/21 12:45: Troponin I High Sens [address] 10/25/21 10:47 IMPRESSION: 1. 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 2. No acute intracranial process. 3. If symptoms persist, MRI of the brain is recommended. Electronically Signed: Matt Rothman MD at 11:51 EDT , Chest X-Ray 10/25/21 10:47 IMPRESSION: No active pulmonary disease. Electronically Signed: Matt Rothman MD at 11:52 EDT , Assessment & Plan Assessment/Plan (1) Dizziness: PLAN: Plan #Dizziness and lightheadedness * etiology is not very clear * she had meclizine in the ED which didnt seem to really help with the lighteadedness. * CT of the brain was negative for any acute intracranial pathology * will get MRI if dizziness persists * pacemaker was interrogated, and she was thought to have a short beat run of afib. * admit to PCU * consult cardioloogy * fall precautions. * check orthostatics * * #Probable afib * pacemaker interrogation showed a short beat run of afib, per ED physician. O fficial pacemaker probe report is pending * says she was told she had afib when she had her pacemaker placed 2 years ago; she is on metoprolol, but has never been on any blood thinners * CHADVASC score is 2 (age and being female) * on aspirin. IN light of this dizziness concerning for stroke, will start on therapeutic lovenox for now, pending cardiology evaluation * #History of complete heart block s/p pacemaker * stable. pacemaker was interrogated in the ED and she was thought to be have a short beat run of afib * cardiology consulted due to concerns for afib. * on metoprolol * #Hyperlipidemia: on rosuvastatin DVT prophylaxis: lovenox COde status: * full code for now * Patient was counseled about differences between full code, DNR CCA and DNR CCA. Patient initially stated that she wanted to be let go and did not want to be on a ventilator in the event that she went into a cardiac arrest. After further clarification, patient says she was undecided and she really did not know as she did not feel she had anything to live for. She informed me that when she was at [facility] was getting her pacemaker placed, she coded 3 times and was resuscitated. She is still undecided about her CODE STATUS and is okay with being put in as full code for now while she thinks her more about it. * Total [id number] time 17 minutes. Charges/Coding Visit Charges OBSV E&M: 61624 Initial observation care L2 Procedures Hospitalists Procedures: 39366 Advncd Care Plan 30 Min
--- NOTE | 2021-10-25 16:52 | EX.ED.DYSGE1 ---
HPI History of Present Illness Chief Complaint: Dizziness Narrative Narrative: 66-year-old female presenting with dizziness. She does not specifically describe it as vertiginous. She does state that she was having trouble walking early because of it. She also feels as though her pacemaker was working abnormally and she felt like it was discharging although she does not have a defibrillator. She does not frankly have chest pain. She did feel little bit short of breath when she was dizzy and she had some nausea. She not had fever, chills. No cough. She has a history of TIA and she states that she is concerned that maybe this is occurring. She denies any facial droop or slurred speech. [facility] Medical History Afib Arthritis Cardiology follow-up encounter (~07/17/20) Complete heart block History of pacemaker (~2019) Hx Gallbladder Removal (~2007) Hx of cardiovascular stress test (~01/09/20) Hx of echocardiogram (~01/09/20) Hyperlipidemia Leg cramps Pacemaker Right bundle branch block Shortness of breath on exertion TIA (transient ischemic attack) Wears glasses Home Medications aspirin 81 mg tablet,delayed release 81 mg PO DAILY@0800 ##30 12/24/19 [Rx Last Taken 09/30/20] rosuvastatin 5 mg tablet 5 mg PO QHS 07/10/20 [History Last Taken 09/30/20] mecobalamin (vitamin B12) 5,000 mcg disintegrating tablet 500 mcg PO DAILY 07/17/20 [History Last Taken 09/30/20] multivitamin (Daily Multi-Vitamin) 1 tab PO DAILY 07/17/20 [History Last Taken 09/30/20] metoprolol succinate 25 mg tablet,extended release 24 hr 25 mg PO QHS 07/19/20 [History Last Taken 09/30/20] acetaminophen 500 mg tablet 1,000 mg PO Q8 #100 tabs 07/31/20 [Rx Last Taken 09/30/20] amoxicillin 500 mg tablet 500 mg PO ONCE #4 tabs 03/05/21 [Rx Last Taken Unknown] Allergy/AdvReac Type Severity Reaction Status Date / Time Sulfa (Sulfonamide Allergy Hives Verified 12/27/20 17:25 Antibiotics) Surgical History History of total knee replacement (TKR) (~07/30/20) Hx of bladder repair surgery (~1997) Hx of cardiac cath (~01/10/20) Social History Smoking Status: Never smoker EXAM Physical Exam Const Vital Signs: 10/25/21 10:11 10/25/21 10:38 10/25/21 12:16 Temperature 97.3 F L Temperature Source Temporal Pulse Rate 77 Pulse Rate [Lying] 65 Pulse Rate [Sitting (for 1 minute prior to obtaining)] 66 Pulse Rate [Standing (for 1 minute prior to obtaining)] 82 Respiratory Rate 16 Respiratory Effort Non-Labored Short of Breath Respiratory Pattern Normal Blood Pressure 149/80 H Blood Pressure [Lying] 133/70 H Blood Pressure [Sitting (for 1 minute prior to obtaining)] 148/80 H Blood Pressure [Standing (for 1 minute prior to obtaining)] 164/95 H Blood Pressure Mean 103 Blood Pressure Mean [Lying] 91 Blood Pressure Mean [Sitting (for 1 minute prior to obtaining)] 102 Blood Pressure Mean [Standing (for 1 minute prior to obtaining)] 118 Pulse Ox 99 Oxygen Delivery Method Room Air Positive well nourished HEENT Reports moist mucous membranes and dry mucous membranes HEENT Narrative: [place]-Hallpike: Positive for nystagmus and reproducible vertiginous dizziness with Mouth ED: Yes dry mucous membranes Mouth: dry mucous membranes Eyes PERRL and EOMs intact bilaterally Chest Wall inspection of chest normal and palpation of chest normal Resp normal respiratory effort and clear to auscultation bilaterally Cardio regular rate and regular rhythm GI normal to inspection, nondistended, normoactive bowel sounds Auscultation: normoactive bowel sounds and hyperactive bowel sounds Neuro oriented x3, CN's II-XII intact bilaterally and no sensory deficits noted Sensorium / Orientation: alert Motor Exam: strength 5/5 throughout Psych mental status grossly normal MDM MDM MDM Narrative Medical decision making narrative: Patient does have some vertiginous dizziness which is reproducible with [place]-Hallpike. She was given meclizine. I obtained an EKG and on my interpretation this is a critically paced. I had the pacemaker interrogated and there was some delay in getting the full report however spoke with the [employer] who told me she was having runs of atrial fibrillation. This may have also contributed to her dizziness especially in the sense that she was feeling somewhat lightheaded and she felt as if her pacemaker was doing something abnormal. Her CBC and CMP are unremarkable. High-sensitivity troponin is 6 initially. Delta troponin is 5. Urinalysis is negative for infection. Chest x-ray my interpretation is no acute cardiopulmonary radiologist does agree. CT of the brain interpreted by the radiologist shows an old lacunar infarct. There is nothing new. I spoke with Dr. Hutchinson regarding the A. fib and she recommended that we admit the patient for monitoring and after we get the full report from [facility] [employer] they can determine whether she needs to be anticoagulated. After this I did speak with the hospitalist who accepted admission. Impression: 1. Dizziness 2. Atrial fibrillation repeat exam patient with RVR ?resolved 3. atypical chest pain Lab Data Attestation: I reviewed the patient's lab results. Labs: Laboratory Results - last 24 hr 10/25/21 10/25/21 10/25/21 10:37 10:37 11:45 WBC 8.0 RBC 5.61 H Hgb 15.6 H Hct 48.8 H MCV 87.0 MCH 27.8 MCHC 32.0 RDW Std Deviation 42.4 RDW Coeff of [place] 13.4 Plt Count 269 MPV 12.1 H Immature Gran % (Auto) 0.300 Neut % (Auto) 54.3 Lymph % (Auto) 32.9 [place] % (Auto) 9.0 Eos % (Auto) 2.9 Baso % (Auto) 0.6 Absolute Neuts (auto) 4.3 Absolute Lymphs (auto) 2.63 Nucleated RBC % 0 Sodium 142 Potassium 3.8 Chloride 109 H Carbon Dioxide 26.0 Anion Gap 7 BUN 20 H Creatinine 0.81 Estim Creat Clear Calc 52.57 Est GFR (MDRD) Af Amer 90 Est GFR (MDRD) Non-Af 74 BUN/Creatinine Ratio 24.6 H Glucose 109 H Calcium 8.3 L Total Bilirubin 0.50 AST 22 ALT 30 Alkaline Phosphatase 82 Troponin I High Sens 6 Total Protein 7.2 Albumin 3.9 Globulin 3.3 Albumin/Globulin Ratio 1.2 Urine Color Yellow Urine Clarity Clear Urine pH 6.5 Ur Specific [place] 1.015 Urine Protein Negative Urine Glucose (UA) Normal Urine Ketones 15 H Urine Occult Blood Negative Urine Nitrite Negative Urine Bilirubin Negative Urine Urobilinogen Normal Ur Leukocyte Esterase Negative Urine RBC 0 SEEN Urine WBC 0 SEEN Ur Squamous Epith Cells 0 SEEN Urine Bacteria 0 SEEN Urine Mucus 0 SEEN 10/25/21 12:45 WBC RBC Hgb Hct MCV MCH MCHC RDW Std Deviation RDW Coeff of [place] Plt Count MPV Immature Gran % (Auto) Neut % (Auto) Lymph % (Auto) [place] % (Auto) Eos % (Auto) Baso % (Auto) Absolute Neuts (auto) Absolute Lymphs (auto) Nucleated RBC % Sodium Potassium Chloride Carbon Dioxide Anion Gap BUN Creatinine Estim Creat Clear Calc Est GFR (MDRD) Af Amer Est GFR (MDRD) Non-Af BUN/Creatinine Ratio Glucose Calcium Total Bilirubin AST ALT Alkaline Phosphatase Troponin I High Sens 5 Total Protein Albumin Globulin Albumin/Globulin Ratio Urine Color Urine Clarity Urine pH Ur Specific [place] Urine Protein Urine Glucose (UA) Urine Ketones Urine Occult Blood Urine Nitrite Urine Bilirubin Urine Urobilinogen Ur Leukocyte Esterase Urine RBC Urine WBC Ur Squamous Epith Cells Urine Bacteria Urine Mucus Radiography Diagnostic Testing: Clinical Impression(s) from Imaging Studies Brain CT 10/25/21 10:47 IMPRESSION: 1. 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 2. No acute intracranial process. 3. If symptoms persist, MRI of the brain is recommended. Electronically Signed: Matt Rothman MD at 11:51 EDT , Chest X-Ray 10/25/21 10:47 IMPRESSION: No active pulmonary disease. Electronically Signed: Matt Rothman MD at 11:52 EDT , Discharge Plan Disposition Disposition: Acute Care Hospital [facility] Discharge Date/Time: 10/25/21 16:45
[2021-10-25] MEDS: 0.9% Normal Saline 1,000 ML 125 ML IV (18:17)
--- NOTE | 2021-10-25 18:33 | CON.PCM.CA_ITS ---
Assessment & Plan Assessment/Plan (1) Dizziness: PLAN: Patient with paroxysmal atrial fibrillation, symptoms of profound dizziness/vertigo-suspect posterior circulation TIA. As such, her [id number] score becomes 4. Patient is followed by club car attendant in [place], and will return to him for ongoing care. Would recommend initiating anticoagulation with Eliquis 5 mg p.o. twice daily. If patient received Lovenox or heparin in the emergency department, please wait for 6 hours post Eliquis at 5 mg p.o. twice daily Increase metoprolol succinate to 50 mg at bedtime Keep potassium greater than 4 magnesium greater than 2. Consider IV magnesium 4 g Consider COVID test Additional recommendations to be based on clinical course and findings Anticipate discharge tomorrow. Outpatient follow-up with primary club car attendant. Thank you for allowing us to participate in patient's care, please do not hesitate to call if further questions arise, Sincerely, Corrine Hutchinson MD [facility] (2) History of pacemaker: (3) Paroxysmal A-fib: HPI Consult Data Date of Consult: 10/25/21 HPI Narrative Reason for Consultation: dizziness,atrial fibrillation HPI Narrative: DOMONIQUE FINCH, is a 66 F who presents to the emergency department with symptoms of dizziness/vertigo. She has history of paroxysmal atrial fibrillation. She reports that yesterday she just did not feel right. She explains it as symptoms of dizziness and vertigo. She did excessive amount of yard work yesterday. She denies any chest discomfort lightheadedness presyncope syncope weakness in any parts of the body fever chills cough orthopnea or PND. She did have a headache, and has had headache for the past several days. She did not get a COVID test today. She has a Medtronic permanent pacemaker in place, interrogation of the pacemaker shows that she has had bouts of atrial fibrillation, 90% ventricular pacing, and today she had atrial fibrillation lasting about 30 minutes. She has not had any recent travel or trauma. Several of her brothers have had coronary artery disease in their 60s. Patient herself had coronary angiography 2 years ago when she got the pacemaker, at that time she was told that she did not have any coronary artery disease. She is a fairly active female. Her [id number] score was 2, she was on aspirin previously, if we think that today's symptoms represent TIA, then her [id number] score becomes 4. [facility] Medical History Afib Arthritis Cardiology follow-up encounter (~07/17/20) Complete heart block History of pacemaker (~2019) Hx Gallbladder Removal (~2007) Hx of cardiovascular stress test (~01/09/20) Hx of echocardiogram (~01/09/20) Hyperlipidemia Leg cramps Pacemaker Right bundle branch block Shortness of breath on exertion TIA (transient ischemic attack) Wears glasses Home Medications aspirin 81 mg tablet,delayed release 81 mg PO DAILY@0800 ##30 12/24/19 [Rx Last Taken 10/24/21 08:00] rosuvastatin 5 mg tablet 5 mg PO QHS 07/10/20 [History Last Taken 10/24/21 22:00] mecobalamin (vitamin B12) 5,000 mcg disintegrating tablet 500 mcg PO DAILY 07/17/20 [History Last Taken 10/24/21 08:00] multivitamin (Daily Multi-Vitamin) 1 tab PO DAILY 07/17/20 [History Last Taken 10/17/21 08:00] metoprolol succinate 25 mg tablet,extended release 24 hr 25 mg PO QHS 07/19/20 [History Last Taken 10/24/21 22:00] Allergy/AdvReac Type Severity Reaction Status Date / Time Sulfa (Sulfonamide Allergy Hives Verified 12/27/20 17:25 Antibiotics) Surgical History History of total knee replacement (TKR) (~07/30/20) Hx of bladder repair surgery (~1997) Hx of cardiac cath (~01/10/20) Social History (Updated 10/25/21 @ 17:40 by Stephany Tobar) housing: house current occupational status: employed Smoking Status: Never smoker ROS ROS Narrative Except as noted in the history of present illness, 12 point review of systems was obtained, and was negative. She does not have any nausea or vomiting she does not have any diarrhea she does not have diplopia she does not have diffi culty swallowing she does not have sensitivity to light Physical Exam Narrative She is pleasant alert oriented x3 speaking in full sentences. No jugular venous distention carotid bruits scleral icterus or facial asymmetry. No gross cranial nerve deficits. Lungs are clear. Heart sounds are regular without murmur rub or gallop. Abdomen is soft nontender extremities showed no edema distal pulses are symmetric palpable, strong. Neurologically she has no gross cranial nerve deficits can move all extremities speech is intact, swallowing is intact, gait was not tested. Skin shows no petechia or rash. Musculoskeletal-no major deformities identified. Risk Stratification Risk Stratification Applicable: Yes Age >/= 65: Yes >/= 3 CAD Risk Factors (HTN, HLD, DM, family hx of CAD, or current smoker): No Aspirin Use in the Past 7 Days: Yes Severe Angina (>/= episodes in 24 hours): No EKG ST Changes >/= 0.5mm: No Positive Cardiac Marker: No ARLYN Risk Stratification Score: 2 ARLYN % Risk: 8% Risk Objective Data Vital Signs: Vital Signs Temp Pulse Resp BP Pulse Ox 98.7 F 86 14 135/71 H 94 10/25/21 17:51 10/25/21 17:51 10/25/21 17:51 10/25/21 17:51 10/25/21 17:51 Oxygen Delivery Method Room Air Weight: 203 lb 4.259 oz Body Mass Index (BMI) 37.1 Intake & Output: Intake and Output for Last 24 Hours 10/23/21 10/24/21 10/25/21 23:59 23:59 23:59 Intake Total 1240 / 1240 Balance 1240 / 1240 Lab / Micro Data Result Diagrams: 10/25/21 10:37 10/25/21 10:37 Labs: Laboratory Results - last 24 hr 10/25/21 10:37: WBC 8.0, RBC 5.61 H, Hgb 15.6 H, Hct 48.8 H, MCV 87.0, MCH 27.8, MCHC 32.0, RDW Std Deviation 42.4, RDW Coeff of [place] 13.4, Plt Count 269, MPV 12.1 H, Immature Gran % (Auto) 0.300, Neut % (Auto) 54.3, Lymph % (Auto) 32.9, [place] % (Auto) 9.0, Eos % (Auto) 2.9, Baso % (Auto) 0.6, Absolute Neuts (auto) 4.3, Absolute Lymphs (auto) 2.63, Nucleated RBC % 0 10/25/21 10:37: Sodium 142, Potassium 3.8, Chloride 109 H, Carbon Dioxide 26.0, Anion Gap 7, BUN 20 H, Creatinine 0.81, Estim Creat Clear Calc 52.57, Est GFR (MDRD) Af Amer 90, Est GFR (MDRD) Non-Af 74, BUN/Creatinine Ratio 24.6 H, Glucose 109 H, Calcium 8.3 L, Total Bilirubin 0.50, AST 22, ALT 30, Alkaline Phosphatase 82, Troponin I High Sens 6, Total Protein 7.2, Albumin 3.9, Globulin 3.3, Albumin/Globulin Ratio 1.2 10/25/21 11:45: Urine Color Yellow, Urine Clarity Clear, Urine pH 6.5, Ur Specific [place] 1.015, Urine Protein Negative, Urine Glucose (UA) Normal, Urine Ketones 15 H, Urine Occult Blood Negative, Urine Nitrite Negative, Urine Bilirubin Negative, Urine Urobilinogen Normal, Ur Leukocyte Esterase Negative, Urine RBC 0 SEEN, Urine WBC 0 SEEN, Ur Squamous Epith Cells 0 SEEN, Urine Bacteria 0 SEEN, Urine Mucus 0 SEEN 10/25/21 12:45: Troponin I High Sens 5 Cardiology Labs/Tests 10/25/21 10:37: WBC 8.0, RBC 5.61 H, Hgb 15.6 H, Hct 48.8 H, MCV 87.0, MCH 27.8, MCHC 32.0, Plt Count 269, MPV 12.1 H, Immature Gran % (Auto) 0.300, Neut % (Auto) 54.3, Lymph % (Auto) 32.9, [place] % (Auto) 9.0, Eos % (Auto) 2.9, Baso % (Auto) 0.6, Absolute Neuts (auto) 4.3, Nucleated RBC % 0 10/25/21 10:37: Sodium 142, Potassium 3.8, Chloride 109 H, Carbon Dioxide 26.0, Anion Gap 7, BUN 20 H, Creatinine 0.81, Est GFR (MDRD) Af Amer 90, Est GFR (MDRD) Non-Af 74, BUN/Creatinine Ratio 24.6 H, Glucose 109 H, Calcium 8.3 L, Total Bilirubin 0.50 10/25/21 11:45: Urine Color Yellow, Urine Clarity Clear, Urine pH 6.5, Ur Specific [place] 1.015, Urine Protein Negative, Urine Glucose (UA) Normal, Urine Ketones 15 H, Urine Occult Blood Negative, Urine Nitrite Negative, Urine Bilirubin Negative, Urine Urobilinogen Normal, Ur Leukocyte Esterase Negative, Urine RBC 0 SEEN, Urine WBC 0 SEEN Rhythm: EKG: ECHO: Stress Test: Cardiac Cath: PCI: CT Surgery: Holter monitor: EPS: PPM: CXR: Chest CT Scan: Radiography Diagnostic Testing: Radiology Impression Brain CT 10/25/21 10:47 IMPRESSION: 1. 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 2. No acute intracranial process. 3. If symptoms persist, MRI of the brain is recommended. Electronically Signed: Matt Rothman MD at 11:51 EDT , Chest X-Ray 10/25/21 10:47 IMPRESSION: No active pulmonary disease. Electronically Signed: Matt Rothman MD at 11:52 EDT , EKG Unable to locate an EKG in the chart.: Pacemaker model: Medtronic MRI compatibl [place] device. Ventricular pacing 90% PAF 33 min
--- NOTE | 2021-10-25 18:45 | PCM.CONS.C ---
Documented by User: Yeni Hutchinson MD 10/25/21 18:45 Assessment & Plan Assessment/Plan (1) Syncope: HPI Consult Data Date of Consult: 10/25/21 HPI Narrative HPI Narrative: DOMONIQUE FNICH, is a 66 F who presents [facility] Medical History Afib Arthritis Cardiology follow-up encounter (~07/17/20) Complete heart block History of pacemaker (~2019) Hx Gallbladder Removal (~2007) Hx of cardiovascular stress test (~01/09/20) Hx of echocardiogram (~01/09/20) Hyperlipidemia Leg cramps Pacemaker Right bundle branch block Shortness of breath on exertion TIA (transient ischemic attack) Wears glasses Home Medications aspirin 81 mg tablet,delayed release 81 mg PO DAILY@0800 ##30 12/24/19 [Rx Last Taken 10/24/21 08:00] rosuvastatin 5 mg tablet 5 mg PO QHS 07/10/20 [History Last Taken 10/24/21 22:00] mecobalamin (vitamin B12) 5,000 mcg disintegrating tablet 500 mcg PO DAILY 07/17/20 [History Last Taken 10/24/21 08:00] multivitamin (Daily Multi-Vitamin tablet) 1 tab PO DAILY 07/17/20 [History Last Taken 10/17/21 08:00] apixaban 5 mg tablet (Eliquis) 5 mg PO BID #60 tabs 10/26/21 [Rx Last Taken Unknown] metoprolol succinate 50 mg tablet,extended release 24 hr 50 mg PO QHS #30 tabs 10/26/21 [Rx Last Taken Unknown] Allergy/AdvReac Type Severity Reaction Status Date / Time Sulfa (Sulfonamide Allergy Hives Verified 12/27/20 17:25 Antibiotics) Surgical History History of total knee replacement (TKR) (~07/30/20) Hx of bladder repair surgery (~1997) Hx of cardiac cath (~01/10/20) Social History (Updated 10/25/21 @ 17:40 by Stephany Tobar) housing: house current occupational status: employed Smoking Status: Never smoker Objective Data Vital Signs: Vital Signs Temp Pulse Resp BP Pulse Ox 98.7 F 86 14 135/71 H 94 06/18/22 17:51 10/25/21 17:51 10/25/21 17:51 10/25/21 17:51 10/25/21 17:51 Oxygen Delivery Method Room Air Weight: 203 lb 4.259 oz Body Mass Index (BMI) 37.1 Intake & Output: Intake and Output for Last 24 Hours 10/23/21 10/24/21 10/25/21 23:59 23:59 23:59 Intake Total 1240 / 1240 Balance 1240 / 1240 Lab / Micro Data Result Diagrams: 10/26/21 06:10 10/26/21 06:10 Labs: Laboratory Results - last 24 hr 10/25/21 10:37: WBC 8.0, RBC 5.61 H, Hgb 15.6 H, Hct 48.8 H, MCV 87.0, MCH 27.8, MCHC 32.0, RDW Std Deviation 42.4, RDW Coeff of [place] 13.4, Plt Count 269, MPV 12.1 H, Immature Gran % (Auto) 0.300, Neut % (Auto) 54.3, Lymph % (Auto) 32.9, [place] % (Auto) 9.0, Eos % (Auto) 2.9, Baso % (Auto) 0.6, Absolute Neuts (auto) 4.3, Absolute Lymphs (auto) 2.63, Nucleated RBC % 0 10/25/21 10:37: Sodium 142, Potassium 3.8, Chloride 109 H, Carbon Dioxide 26.0, Anion Gap 7, BUN 20 H, Creatinine 0.81, Estim Creat Clear Calc 52.57, Est GFR (MDRD) Af Amer 90, Est GFR (MDRD) Non-Af 74, BUN/Creatinine Ratio 24.6 H, Glucose 109 H, Calcium 8.3 L, Total Bilirubin 0.50, AST 22, ALT 30, Alkaline Phosphatase 82, Troponin I High Sens 6, Total Protein 7.2, Albumin 3.9, Globulin 3.3, Albumin/Globulin Ratio 1.2 10/25/21 11:45: Urine Color Yellow, Urine Clarity Clear, Urine pH 6.5, Ur Specific [place] 1.015, Urine Protein Negative, Urine Glucose (UA) Normal, Urine Ketones 15 H, Urine Occult Blood Negative, Urine Nitrite Negative, Urine Bilirubin Negative, Urine Urobilinogen Normal, Ur Leukocyte Esterase Negative, Urine RBC 0 SEEN, Urine WBC 0 SEEN, Ur Squamous Epith Cells 0 SEEN, Urine Bacteria 0 SEEN, Urine Mucus 0 SEEN 10/25/21 12:45: Troponin I High Sens 5 Cardiology Labs/Tests 10/25/21 10:37: WBC 8.0, RBC 5.61 H, Hgb 15.6 H, Hct 48.8 H, MCV 87.0, MCH 27.8, MCHC 32.0, Plt Count 269, MPV 12.1 H, Immature Gran % (Auto) 0.300, Neut % (Auto) 54.3, Lymph % (Auto) 32.9, [place] % (Auto) 9.0, Eos % (Auto) 2.9, Baso % (Auto) 0.6, Absolute Neuts (auto) 4.3, Nucleated RBC % 0 10/25/21 10:37: Sodium 142, Potassium 3.8, Chloride 109 H, Carbon Dioxide 26.0, Anion Gap 7, BUN 20 H, Creatinine 0.81, Est GFR (MDRD) Af Amer 90, Est GFR (MDRD) Non-Af 74, BUN/Creatinine Ratio 24.6 H, Glucose 109 H, Calcium 8.3 L, Total Bilirubin 0.50 10/25/21 11:45: Urine Color Yellow, Urine Clarity Clear, Urine pH 6.5, Ur Specific [place] 1.015, Urine Protein Negative, Urine Glucose (UA) Normal, Urine Ketones 15 H, Urine Occult Blood Negative, Urine Nitrite Negative, Urine Bilirubin Negative, Urine Urobilinogen Normal, Ur Leukocyte Esterase Negative, Urine RBC 0 SEEN, Urine WBC 0 SEEN Rhythm: EKG: ECHO: Stress Test: Cardiac Cath: PCI: CT Surgery: Holter monitor: EPS: PPM: CXR: Chest CT Scan: Radiography Diagnostic Testing: Radiology Impression Brain CT 10/25/21 10:47 IMPRESSION: 1. 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 2. No acute intracranial process. 3. If symptoms persist, MRI of the brain is recommended. Electronically Signed: Matt Rothman MD at 11:51 EDT , Chest X-Ray 10/25/21 10:47 IMPRESSION: No active pulmonary disease. Electronically Signed: Matt Rothman MD at 11:52 EDT , Documented by User: Dr. Dandre Brenner MD 12/08/21 06:58 Assessment & Plan Assessment/Plan (1) Syncope: PLAN: See hospitalist H&P. HPI Consult Data Date of Consult: 12/08/21 HPI Narrative HPI Narrative: DOMONIQUE FINCH, is a 66 F who presents with syncope and supposed to see but the consult was canceled. [facility] Medical History Afib Arthritis Cardiology follow-up encounter (~07/17/20) Complete heart block History of pacemaker (~2019) Hx Gallbladder Removal (~2007) Hx of cardiovascular stress test (~01/09/20) Hx of echocardiogram (~01/09/20) Hyperlipidemia Leg cramps Pacemaker Right bundle branch block Shortness of breath on exertion TIA (transient ischemic attack) Wears glasses Home Medications aspirin 81 mg tablet,delayed release 81 mg PO DAILY@0800 ##30 12/24/19 [Rx Last Taken 10/24/21 08:00] rosuvastatin 5 mg tablet 5 mg PO QHS 07/10/20 [History Last Taken 10/24/21 22:00] mecobalamin (vitamin B12) 5,000 mcg disintegrating tablet 500 mcg PO DAILY 07/17/20 [History Last Taken 10/24/21 08:00] multivitamin (Daily Multi-Vitamin tablet) 1 tab PO DAILY 07/17/20 [History Last Taken 10/17/21 08:00] apixaban 5 mg tablet (Eliquis) 5 mg PO BID #60 tabs 10/26/21 [Rx Last Taken Unknown] metoprolol succinate 50 mg tablet,extended release 24 hr 50 mg PO QHS #30 tabs 10/26/21 [Rx Last Taken Unknown] Allergy/AdvReac Type Severity Reaction Status Date / Time Sulfa (Sulfonamide Allergy Hives Verified 12/27/20 17:25 Antibiotics) Surgical History History of total knee replacement (TKR) (~07/30/20) Hx of bladder repair surgery (~1997) Hx of cardiac cath (~01/10/20) Social History (Updated 10/25/21 @ 17:40 by Stephany Tobar) housing: house current occupational status: employed Smoking Status: Never smoker Risk Stratification Risk Stratification Applicable: No Lab / Micro Data Result Diagrams: 10/26/21 06:10 10/26/21 06:10
[2021-10-25 18:55] LABS: Troponin-I HS 6 pg/mL (3.0-54.0)
[2021-10-25] MEDS: Enoxaparin 100 MG/ML Syringe 90 MG SC (22:18)
[2021-10-25] MEDS: Metoprolol(XL)Succ 25 MG Tablet PO (22:19)
[2021-10-25] MEDS: Atorvastatin Calcium 10 MG Tablet PO (22:20)
[2021-10-26] VITALS (7 sets, daily range): BP systolic 110–133; BP diastolic 55–70; PULSE 70–80; RESP 16; TEMP 36.7–37; O2SAT 96–98; BMI 37.1
[2021-10-26] MEDS: 0.9% Normal Saline 1,000 ML 125 ML IV (01:55)
[2021-10-26 07:07] LABS: Absolute Lymphocyte Count 1.71 X10^3/uL (0.83-4.51); Absolute Neutrophil Count 3.5 X10^3/uL (2.0-7.7); Basophil# 0.04 X10^3/uL; Basophil% 0.7 % (0-1); Eosinophil# 0.19 X10^3/uL; Eosinophils% 3.2 % (0-5); Hematocrit 42.8 % (37-47); Hemoglobin 13.8 g/dL (12.0-15.0); Lymphocyte # 1.71 X10^3/ul (0.83-4.51); Lymphocyte % 28.6 % (19-41); Mean Corp Hgb Conc 32.2 g/dL (32-36); Mean Corpuscular Hgb 28.1 pg (27.0-32.0); Mean Corpuscular Volume 87.2 fL (81-99); Mean Platelet Vol. 12.3 fl (6.2-12.0); Monocyte# 0.52 X10^3/uL; Monocyte% 8.7 % (0-10); NRBC Flagged by Analyzer 0 % (0-5); Neutrophil # 3.51 X10^3/uL (2.7-7.7); Neutrophil % 58.6 % (47-70); Platelet Count 230 K/mm3 (150-450); RBC Distribution Width CV 13.7 % (11.6-14.6); Red Blood Count 4.91 M/mm3 (4.2-5.4)
[2021-10-26 07:34] LABS: Anion Gap 5 (5-15); BUN 20 mg/dL (7-18); BUN/Creat Ratio 29.3 RATIO (10-20); Calcium,Total 7.8 mg/dL (8.5-10.1); Chloride 114 mmol/L (98-107); Cholesterol 129 mg/dL (200); Creatinine, Serum 0.68 mg/dL (0.55-1.02); EST Glomerular Filtration Rate 91 mL/min (>60); Est Glom Filt Rate - Afr Amer 110 mL/min (>60); Estimated Creatinine Clearance 42.59 ml/min; Glucose 105 mg/dL (74-106); High Density Lipoprotein 52 mg/dL; Potassium 4.1 mmol/L (3.5-5.1); Sodium Level 143 mmol/L (136-145); Triglycerides 96 mg/dL; Very Low Density Lipoprotein 19 mg/dL (5-40)
[2021-10-26] MEDS: Cyanocobalamin 500 MCG Tablet PO (10:20)
[2021-10-26] MEDS: Aspirin E.C. 81 MG Tablet PO (10:20)
[2021-10-26] MEDS: Multivitamins,Therapeutic Tablet 1 TABLET PO (10:20)
--- NOTE | 2021-10-26 14:33 | NURSING ---
Dr. Hansen made aware pt leaving AMA. Pt refuses to take rx for anticoagulation stating I will get it from my doctor if I need it. Pt leaving unit at this time without difficulties, AMA formed signed.
--- NOTE | 2021-10-26 14:39 | DS.PCM_ITS ---
Providers Date of Admission: 10/25/21 Date of Discharge: 10/26/21 Primary Care Physician: KILO Rodriguez Consultations 10/25/21 17:15 Consult: Cardiology Routine Consulting Provider: Yeni Hutchinson Reason for Consult: dizziness, probable afib EMERGENT Consult: No MD Notified: Yes Date Notified: 10/25/21 Time Notified: 16:33 Method of Notification: Text Reason For Visit: DIZZINESS Diagnosis Discharge Diagnosis (1) Dizziness: Status: Acute Code(s): R42 - Dizziness and giddiness (2) History of pacemaker: Status: Chronic Code(s): Z95.0 - Presence of cardiac pacemaker (3) Paroxysmal A-fib: Status: Acute Code(s): I48.0 - Paroxysmal atrial fibrillation Medications at Discharge Home Medications aspirin 81 mg tablet,delayed release 81 mg PO DAILY@0800 ##30 12/24/19 rosuvastatin 5 mg tablet 5 mg PO QHS 07/10/20 mecobalamin (vitamin B12) 5,000 mcg disintegrating tablet 500 mcg PO DAILY 07/17/20 multivitamin (Daily Multi-Vitamin) 1 tab PO DAILY 07/17/20 apixaban 5 mg tablet (Eliquis) 5 mg PO BID #60 tabs 10/26/21 metoprolol succinate 50 mg tablet,extended release 24 hr 50 mg PO QHS #30 tabs 10/26/21 Hospital Course Operations None Procedures None Summary of Care Provided Minutes Spent on Discharge: 45 Hospital Course: DOMONIQUE FINCH, is a 66 F with a PMH as outlined who presents via the ED with a complaint of dizziness and lightheadedness. She denied any headache, chest pain, palpitations, nausea or vomiting. She also felt like her pacemaker was discharging. She hadnt had such symptoms before. She says she had been doing a lot of heavy work recently, and had not been drinking as much as she should. She says she had a pacemaker placed 2 years ago and says she was told then that she had afib also. She is on metoprolol but has never been on any blood thinner, and doesnt know why. She doesnt have any history of GI bleed to preclude her from being anticoagulated. Review of systems was otherwise negative. VItals in the ED wre temp of 97.3F, MS of 77, BP of 133/70 and RR of 16. She was saturating at 99% on room air. CBC showed Hb of 15.6, wbc of 8 and platelets of 269. Chemistry showed sodium of 142 with potassium of 3.8 and Cr of 0.81. Urinalysis was unremarkable. CT brain was negative for any acute intracranial pathology. Her pacemaker was interrogated in the ED and she was found to have a short beat run of afib. She was admitted to be managed for dizziness to rule out a stroke in light of her history of afib. Cardiology was also consulted. Patient did state that she had been told she had A. fib when she had her pacemaker implanted 2 years ago. Her metoprolol was increased to 50 mg nightly. MRI of the brain was ordered. Patient could not have the MRI on 10/26/2021 because the compatibility of the pacemaker had to be ascertained before she could have the MRI. Patient was not willing to wait till Wednesday, October 27, 2021 before she had the MRI and chose to sign out AMA. Patient therefore signed out AGAINST MEDICAL ADVICE on 10/26/2021. Patient was given a prescription for p.o. Eliquis 5 mg twice daily for DVT prophylaxis as well as p.o. metoprolol XL 50 mg nightly. Physical Exam Const alert, oriented x3 and no apparent distress General Appearance: cooperative Orientation / Consciousness: awake HEENT normocephalic, head/scalp atraumatic, hearing grossly normal bilaterally and moist oral mucous membranes Eyes PERRL and EOMs intact bilaterally Neck no lymphadenopathy Resp normal respiratory effort, no retractions, no use of accessory muscles and clear to auscultation bilaterally Cardio regular rate, regular rhythm, S1 normal heart sound, S2 normal heart sound and no murmurs GI normal to inspection, nondistended, normoactive bowel sounds, soft to palpation, non-tender and non-distended Neuro oriented x3, CN's II-XII intact bilaterally and moves all extremities Sensorium / Orientation: awake Psych affect normal Weight / BMI Weight Weight: 203 lb 4.259 oz Body Mass Index (BMI) 37.1 ABG / Lab / Microbiology Data Result Diagrams: 10/26/21 06:10 10/26/21 06:10 Laboratory: Laboratory Results - last 24 hr 10/25/21 18:25: Troponin I High Sens 6 10/26/21 06:10: WBC 6.0, RBC 4.91, Hgb 13.8, Hct 42.8, MCV 87.2, MCH 28.1, MCHC 32.2, RDW Std Deviation 44.0 H, RDW Coeff of [place] 13.7, Plt Count 230, MPV 12.3 H , Immature Gran % (Auto) 0.200, Neut % (Auto) 58.6, Lymph % (Auto) 28.6, [place] % (Auto) 8.7, Eos % (Auto) 3.2, Baso % (Auto) 0.7, Absolute Neuts (auto) 3.5, Absolute Lymphs (auto) 1.71, Nucleated RBC % 0 10/26/21 06:10: Sodium 143, Potassium 4.1, Chloride 114 H, Carbon Dioxide 24.0, Anion Gap 5, BUN 20 H, Creatinine 0.68, Estim Creat Clear Calc 42.59, Est GFR (MDRD) Af Amer 110, Est GFR (MDRD) Non-Af 91, BUN/Creatinine Ratio 29.3 H, Glucose 105, Calcium 7.8 L, Triglycerides 96, Cholesterol 129, LDL Cholesterol 58, VLDL Cholesterol 19, HDL Cholesterol 52 D/C Instructions Discharge Diet: Low fat / Low cholesterol Discharge Activity: Return to Normal Activity Meaningful Use Info Meaningful Use Diagnoses (Choose all that apply): None applicable Discharge Plan Admission Admit Date/Time: 10/25/21 16:31 Primary Reason for Your Visit: dizziness, afib Attending Provider: Ivory Hansen Primary Care Provider: Dewayne Guallpa Consulting Providers: Yeni Hutchinson Instructions Patient Instructions: Dizziness Fainting Ch Discharge Orders/Prescriptions Prescriptions: New Eliquis 5 mg tablet 5 mg PO BID Qty: 60 1RF metoprolol succinate 50 mg tablet extended release 24 hr 50 mg PO QHS Qty: 30 2RF Continued rosuvastatin 5 mg tablet 5 mg PO QHS Label Comments: TAKE 1 TABLET BY MOUTH ONCE DAILY AT BEDTIME multivitamin [Daily Multi-Vitamin] Tablet 1 tab PO DAILY mecobalamin (vitamin B12) 5,000 mcg tablet,disintegrating 500 mcg PO DAILY aspirin 81 MG tablet 81 mg PO DAILY@0800 Qty: 30 0RF Discontinued metoprolol succinate 25 MG tablet extended release 24 hr 25 mg PO QHS Referrals / Follow Up: Dewayne Guallpa, PA [Primary Care Provider] - Within 2 Weeks Disposition Disposition (needs filled in before D/C Order can be placed): Against Medical Advice Charges/Coding Visit Charges OBSV E&M: 07414 Observation care discharge
== END 2021-10-26 14:33 | disposition left against medical advice (07) ==
LOC: ED 16:29 → PCU 17:05
PROVIDERS: Admitting Provider Student in an Organized Health Care Education/Training Program; Emergency Provider Student in an Organized Health Care Education/Training Program; PCP Physician Assistant; Visit Provider Student in an Organized Health Care Education/Training Program
DX: R42 Dizziness and giddiness (principal); I48.0 Paroxysmal atrial fibrillation; R11.0 Nausea; E78.5 Hyperlipidemia, unspecified; Z79.82 Long term (current) use of aspirin; R07.89 Other chest pain; Z79.899 Other long term (current) drug therapy; Z95.0 Presence of cardiac pacemaker
CPT/HCPCS: 36415; 70450; 71045; 80048; 80053; 80061; 81001; 84484; 85025; 94762; 96361; 96372; 96374; 99218; 99285; J7030; A4216; G0378; J2405

== ENCOUNTER 2022-03-29 07:56 | Emergency (ER) | payer MEDICARE, SELFPAY ==
[2022-03-29 07:58] VITALS: BP 136/74; PULSE 87; RESP 16; TEMP 36.3; O2SAT 96; BMI 35.6
--- NOTE | 2022-03-29 08:19 | RAD_ITS ---
STUDY: X-RAY - RIGHT HAND, ATTENTION FIRST FINGER REASON FOR EXAM: Female, 66 years old. Smashed thumb. Injury TECHNIQUE: First view(s) of the finger were obtained. COMPARISON: None. FINDINGS: There are degenerative changes of the carpometacarpal joint. Normal metacarpal head. There is moderate degenerative arthrosis of the metacarpophalangeal joint. Normal proximal phalanx. There is a cortical defect at the base of the distal phalanx along the ventral aspect of the phalanx. There is mild degenerative arthrosis of the interphalangeal joint. There is diffuse soft tissue swelling. RAD/Finger(s) Min 2 Views IMPRESSION: Indeterminate cortical defect at the base of the distal phalanx, cannot exclude an avulsion injury of uncertain chronicity. Degenerative joint disease, as described above. Electronically Signed: Gillian Traore MD at 8:57 EST ,
--- NOTE | 2022-03-29 08:20 | EDS_ITS ---
HPI History of Present Illness Chief Complaint: Upper Extremity Injury Detail of Chief Complaint: Injury to right thumb Informant: patient Narrative Narrative: Patient presents the emergency department with complaint of injury to the right thumb that occurred last evening around 8 PM. Patient states that she accidentally slammed her finger in the car door. Patient is right-hand dominant. She is unsure of her last tetanus shot. [facility] Medical History Afib Arthritis Cardiology follow-up encounter (~07/17/20) Complete heart block History of pacemaker (~2019) Hx Gallbladder Removal (~2007) Hx of cardiovascular stress test (~01/09/20) Hx of echocardiogram (~01/09/20) Hyperlipidemia Leg cramps Pacemaker Right bundle branch block Shortness of breath on exertion TIA (transient ischemic attack) Wears glasses Home Medications aspirin 81 mg tablet,delayed release 81 mg PO DAILY@0800 ##30 12/24/19 [Rx Last Taken 10/24/21 08:00] rosuvastatin 5 mg tablet 5 mg PO QHS 07/10/20 [History Last Taken 10/24/21 22:00] mecobalamin (vitamin B12) 5,000 mcg disintegrating tablet 500 mcg PO DAILY 07/17/20 [History Last Taken 10/24/21 08:00] multivitamin (Daily Multi-Vitamin tablet) 1 tab PO DAILY 07/17/20 [History Last Taken 10/17/21 08:00] apixaban 5 mg tablet (Eliquis) 5 mg PO BID #60 tabs 10/26/21 [Rx Last Taken Unknown] metoprolol succinate 50 mg tablet,extended release 24 hr 50 mg PO QHS #30 tabs 10/26/21 [Rx Last Taken Unknown] Allergy/AdvReac Type Severity Reaction Status Date / Time Sulfa (Sulfonamide Allergy Hives Verified 03/29/22 08:00 Antibiotics) Surgical History History of total knee replacement (TKR) (~07/30/20) Hx of bladder repair surgery (~1997) Hx of cardiac cath (~01/10/20) Social History (Updated 10/25/21 @ 17:40 by Stephany Tobar) housing: house current occupational status: employed Smoking Status: Never smoker ROS ROS ED Review of Systems ROS Unobtainable: other Constitutional Constitutional ED: Reports lethargy; Denies chills, fever(s), sweats or weight loss Eyes Eyes: Denies blurry vision, change in vision or diplopia ENT ENT ED: Denies rhinorrhea or sore throat Cardiovascular Cardiovascular: Denies chest pain, orthopnea or racing heartbeat Respiratory/Chest Respiratory/Chest: Denies cough, dyspnea, dyspnea on exertion, orthopnea or sputum Gastrointestinal Gastrointestinal: Denies abdominal pain, diarrhea, nausea or vomiting Genitourinary Genitourinary ED: Denies dysuria, hematuria or urinary frequency Musculoskeletal Musculoskeletal: Reports other Details: Right thumb pain/injury ; Denies arthralgias, back pain, myalgias or neck pain Integumentary Denies abscess, Abrasions or rash Neurologic Neurologic: Denies headache(s) or weakness Psychiatric Psychiatric: Denies anxiety, depression or suicidal thoughts Endocrine Endocrinology: Denies polydipsia, polyphagia or polyuria Hematologic/Lymphatic Hematologic/Lymphatic: Denies easy bleeding, easy bruising or lymphadenopathy Allergic/Immunologic Allergic/Immunologic ED: Denies mouth swelling, tongue swelling or urticaria EXAM Physical Exam Const Vital Signs: 03/29/22 07:58 Temperature 97.4 F L Temperature Source Temporal Pulse Rate 87 Respiratory Rate 16 Blood Pressure 136/74 H Blood Pressure Mean 94 Pulse Ox 96 Oxygen Delivery Method Room Air Positive well nourished and well developed General Appearance ED: well developed and NAD HEENT Reports TM's clear and moist mucous membranes normocephalic and atraumatic; Negative for trauma or tenderness Tympanic Membrane ED: Yes TM's clear Eyes PERRL and EOMs intact bilaterally General Eye ED: Negative for pale conjunctiva or scleral icterus Neck no lymphadenopathy, supple and no JVD General: Negative for tenderness Chest Wall inspection of chest normal and palpation of chest normal Chest: Negative for tenderness Resp normal respiratory effort and clear to auscultation bilaterally Effort and Inspection: Negative for respiratory distress or pain with movement Auscultation: Negative for rhonchi, wheezes or diminished lung sounds Cardio regular rate, regular rhythm, S1 normal heart sound, S2 normal heart sound and no murmurs Peripheral Pulses: pulses 2+ throughout GI normal to inspection, nondistended, normoactive bowel sounds, soft to palpation, non-tender, non-distended and no masses Back/Spine no CVA tenderness and no thoracic nor lumbar tenderness Extremity Extremity Narrative: Right thumb-patient has approximately 50% subungual hematoma proximal portion of the nail with some clot and old blood at the area of the nail fold. There is no evidence of nail avulsion. Patient with ecchymosis and bruising over the pulp of the distal phalanx of the thumb. No obvious deformity. Neurovascularly intact. General Extremety ED: Negative for edema General Extremity: Negative for edema Neuro oriented x3, CN's II-XII intact bilaterally, no sensory deficits noted and gait normal Sensorium / Orientation: awake, alert, oriented to person, oriented to place and oriented to time Motor Exam: strength 5/5 throughout and strength abnormal Psych mental status grossly normal Skin no rashes or lesions noted and no wounds MDM MDM MDM Narrative Medical decision making narrative: Patient has injury to the right thumb. I do not feel she needs trephination of the nail as blood has been released from underneath the nail fold. The nail does not appear avulsed currently. I did discuss with her that it is possible she could lose her nail and that it may not grow back or grow back with deformity. Patient will be given an aluminum splint. She did not want thing for pain. 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 Radiography Diagnostic Testing: Three-view x-rays of the right thumb obtained interpreted by myself as questionable fracture at the base of the distal phalanx that is nondisplaced. Radiology interpretation similar and that they felt there may be a lucency at the base of the proximal phalanx age undetermined. Discharge Plan Triage Chief Complaint: Upper Extremity Injury ED Provider: Con Gregg Dx/Rx/DC Orders Clinical Impression: Finger fracture, Subungual hematoma Instructions: ED Fracture, Finger, Closed, ED Subungual Hematoma Prescriptions: No Action rosuvastatin 5 mg tablet 5 mg PO QHS Label Comments: TAKE 1 TABLET BY MOUTH ONCE DAILY AT BEDTIME multivitamin [Daily Multi-Vitamin] Tablet 1 tab PO DAILY mecobalamin (vitamin B12) 5,000 mcg tablet,disintegrating 500 mcg PO DAILY aspirin 81 MG tablet 81 mg PO DAILY@0800 Qty: 30 0RF Eliquis 5 mg tablet 5 mg PO BID Qty: 60 1RF metoprolol succinate 50 mg tablet extended release 24 hr 50 mg PO QHS Qty: 30 2RF Primary Care Provider: Dewayne Guallpa Referrals: Charanjit Wing DO [Med Staff - Active Staff] - 5-7 Days Dewayne Guallpa PA [Primary Care Provider] - Disposition Disposition: Home, Self Care
== END 2022-03-29 09:25 | disposition home or self-care (01) ==
PROVIDERS: Emergency Provider Emergency Medicine; PCP Physician Assistant; Visit Provider Emergency Medicine
DX: S62.501A Fracture of unspecified phalanx of right thumb, initial encounter for closed fracture (principal); Z86.73 Personal history of transient ischemic attack (TIA), and cerebral infarction without residual deficits; X58.XXXA Exposure to other specified factors, initial encounter
CPT/HCPCS: 73140; 90715; 99282